=== PATIENT | female | born 1980 | race Caucasian/White ===

== ENCOUNTER 2016-12-02 14:12 | Emergency (ER) | payer OTHER ==
[2016-12-02] MEDS ORDERED: NS 0.9% 1000 ML* 1,000 ML IV ONE (16:53)
--- NOTE | 2016-12-02 17:02 | ED ---
Syncope/Near Syncope - HPI Summary HPI Summary: Pt here w/ episode of lightheadedness, flushing and near syncope while at work today. Was in A/C building and went outside for lunch - felt the heat outside bother her some. She then went to smoke in her friend's car - during smoking is when she experienced these sx. Her friend turned on the A/C which didn't really help - pt continued to finish her cigarette and felt poorly - not herself and nauseous. Went back into work and ate lunch, drank sparkling water (which she admits to drinking a lot of ). Didn't notice much difference but tried to continue to work and finally decided she needed to be checked out here. Since here, she's developed a ASH. Boyfriend reports she sounded slow w/ speech when he spoke w/ her earlier today. She denies dizziness, falling/syncope, URI sx, neck pain, chest pain, SOB, ab pain, change in BM's, urinary sx, flank pain, rash, swelling, focal numbness or weakness. She is sexually active w/ 1 male partner - no condoms as he has a vascectomy. She denies vaginal d/c, irritation, pain or abnormal vaginal bleeding/menstrual cycle. Admits BP is high today for her. Also admits to anxiety/depression - takes zoloft - no change in meds but drank last night - "2 tall cans" of ETOH, same as usual for her. Denies new stress or overexerting herself w/ daily routine. - History Of Current Complaint Chief Complaint: EDDizziness Time Seen by Provider: 12/02/16 14:51 Hx Obtained From: Patient, Family/Apartment Leasing Consultant - boyfriend - Allergies/Home Medications Allergies/Adverse Reactions: Allergies Allergy/AdvReac Type Severity Reaction Status Date / Time Penicillins Allergy Intermediate Hives Verified 06/25/14 11:19 PMH/Surg Hx/FS Hx/Imm Hx Previously Healthy: Yes Endocrine/Hematology History: Denies: Hx Anticoagulant Therapy, Hx Blood Disorders, Hx Diabetes, Hx Thyroid Disease, Hx Anemia Cardiovascular History: Denies: Hx Hypertension Respiratory History: Reports: Hx Asthma - uses albuterol < 1 x month Denies: Hx Chronic Obstructive Pulmonary Disease (COPD), Hx Pneumonia, Hx Pulmonary Embolism, Hx Seasonal Allergies, Hx Sleep Apnea GI History: Denies: Hx Gastroesophageal Reflux Disease, Hx Ulcer History: Denies: Hx Acute Renal Failure, Hx Chronic Renal Failure, Hx Kidney Infection , Hx Kidney Stones Neurological History: Reports: Hx Headaches - X 1 MONTH FOLLOWING FALL Denies: Hx CVA, Hx Migraine, Hx Transient Ischemic Attacks (TIA) Psychiatric History: Reports: Hx Anxiety, Hx Depression - takes zoloft - no changes in med dose - Surgical History Surgery Procedure, Year, and Place: Hernia repair age 4 yo Infectious Disease History: Yes Infectious Disease History: Denies: Hx Hepatitis, Hx Human Immunodeficiency Virus (HIV), Traveled Outside the [place] in Last 30 Days - Family History Known Family History: Positive: None - Social History Occupation: Employed Full-time - TECHNICAL SALES SUPPORT SPECIALIST @ [employer] Lives: With Family Alcohol Use: Daily Alcohol Amount: beer and wine Hx Substance Use: No Substance Use Type: Reports: None Hx Tobacco Use: Yes Smoking Status (MU): Current Every Day Smoker Review of Systems Constitutional: Negative Negative: Fever, Chills, Fatigue Eyes: Negative Negative: Photophobia, Blurred Vision, Diplopia ENT: Negative Negative: Dental Pain, Sore Throat, Ear Ache, Nasal Discharge Cardiovascular: Negative Negative: Palpitations, Chest Pain Respiratory: Negative Negative: Shortness Of Breath, Cough Gastrointestinal: Negative Negative: Abdominal Pain, Vomiting, Diarrhea, Nausea Genitourinary: Negative Musculoskeletal: Negative Skin: Negative Neurological: Other - see HPI Psychological: Normal All Other Systems Reviewed And Are Negative: Yes Physical Exam Triage Information Reviewed: Yes Vital Signs On Initial Exam: Initial Vitals Temp Pulse Resp BP Pulse Ox 99.2 F 73 17 174/111 99 12/02/16 14:13 12/02/16 14:13 12/02/16 14:13 12/02/16 14:13 12/02/16 14:13 Vital Signs Reviewed: Yes Appearance: Positive: No Pain Distress, Obese Skin: Positive: Warm, Dry Head/Face: Positive: Normal Head/Face Inspection - sinuses NTTP Eyes: Positive: Normal, EOMI, GEORGIE, Conjunctiva Clear. Negative: Conjunctiva Inflammed, Discharge ENT: Positive: Normal ENT inspection, Hearing grossly normal, Pharynx normal, TMs normal. Negative: Pharyngeal erythema, Nasal congestion, Nasal drainage, Tonsillar swelling, Tonsillar exudate, Trismus, Muffled/hoarse voice Dental: Negative: Gross Decay/Caries @, Dental Fracture @, Abscess @ Neck: Positive: Supple, Nontender, No Lymphadenopathy Respiratory/Lung Sounds: Positive: Clear to Auscultation, Breath Sounds Present. Negative: Rales, Rhonchi, Subcutaneous Emphysema, Stridor, Tracheal Deviation, Wheezes Cardiovascular: Positive: Normal, RRR, Pulses are Symmetrical in both Upper and Lower Extremities, S1, S2. Negative: Murmur, Rub, Leg Edema Left, Leg Edema Right Abdomen Description: Positive: Nontender, No Organomegaly, Soft. Negative: CVA Tenderness (R), CVA Tenderness (L) Bowel Sounds: Positive: Present Pelvic Exam: Positive: other - deferred Musculoskeletal: Positive: Normal, Strength/ROM Intact Neurological: Positive: Normal, Sensory/Motor Intact, Alert, Oriented to Person Place, Time, CN Intact II-III, Finger to Nose, Facial Symmetry, Speech Normal. Negative: Dysphagia, Pronator Drift Present Psychiatric: Positive: Normal - concerned but calm - Elmer Coma Scale Coma Scale Total: 15 Diagnostics - Vital Signs Vital Signs Temp Pulse Resp BP Pulse Ox 12/02/16 14:38 98.3 F 65 19 157/92 98 12/02/16 14:13 99.2 F 73 17 174/111 99 - Laboratory Result Diagrams: 12/02/16 17:04 12/02/16 17:04 Lab Statement: Any lab studies that have been ordered have been reviewed, and results considered in the medical decision making process. Re-Evaluation - Re-Evaluation First Eval Change: Improved - speech feels more clear Course/Dx Course Of Treatment: Pt presents w/ lightheadedness, slowed speech and near syncope earlier today - symptoms are not as severe now, but lingering. Clinical exam and tests are unremarkable for acute pathology. We did discuss however with elevated LFT's in the face of drinking ETOH last night, she may have residual effects of drinking ETOH today - rebound HTN, fatigue, dehydration and smoking on top of this exacerbating sx. Orthostatics are pending. Alternative is pt may be having 1st hypertensive episode - w/o 2nd recorded BP being elevated cannot diagnose this today however advise close f/u w/ PCP Monday for repeat BP and tx as needed. If she feels worse in the meantime, return to ED. Signed out to Ramila Vee PA-C @ 18:41. - Diagnoses Provider Diagnoses: Near syncope Discharge - Discharge Plan Condition: Stable Disposition: OTHER Discharge Disposition Comment: signed out to Ramila Vee PA-C Referrals: Rasta Darling MD [Primary Care Provider] -
[2016-12-02 17:16] LABS: Hematocrit 47 % (35-47); Hemoglobin 15.6 g/dl (12.0-16.0); Mean Corpuscular HGB Conc 34 g/dl (31-36); Mean Corpuscular Hemoglobin 31 pg (27-31); Mean Corpuscular Volume 91 fL (80-97); Mean Platelet Volume 9 um3 (7.4-10.4); Red Cell Distribution Width 13 % (10.5-15); White Blood Count 11.7 10^3/ul (3.5-10.8)
[2016-12-02 17:17] LABS: Urine Bilirubin Negative (Negative); Urine Glucose Negative (Negative); Urine Nitrite Negative (Negative)
[2016-12-02 17:30] LABS: ALT 69 U/L (7-52); AST 55 U/L (13-39); Albumin 3.5 g/dL (3.2-5.2); Alkaline Phosphatase 101 U/L (34-104); Anion Gap 6 mmol/L (2-11); BUN/Creatinine Ratio 20.3 (8-20); Blood Urea Nitrogen 12 mg/dL (6-24); C Reactive Protein 10.07 mg/L (< 5.00); CO2 Carbon Dioxide 26 mmol/L (22-32); Calcium 9.2 mg/dL (8.6-10.3); Chloride 103 mmol/L (101-111); EGFR African American 149.2 (>60); Globulin 3.1 g/dL (2-4); Glucose 85 mg/dL (70-100); Potassium 3.9 mmol/L (3.5-5.0); Sodium 135 mmol/L (133-145); Total Protein 6.6 g/dL (6.4-8.9)
--- NOTE | 2016-12-02 17:45 | RAD ---
INDICATION: Weakness COMPARISON: None TECHNIQUE: PA and lateral dual-energy views were obtained. FINDINGS: Bones/Soft Tissues: There are no acute bony findings. Cardiomediastinal: The cardiomediastinal silhouette is normal. Lungs: There are no infiltrates. Pleura: There are no pleural effusions. Other: None IMPRESSION: NEGATIVE EXAMINATION.
[2016-12-02 18:02] LABS: Alcohol < 10 mg/dL (<10)
[2016-12-02 18:12] LABS: TSH (Thyroid Stimulating Horm) 1.95 mcIU/mL (0.34-5.60)
[2016-12-02 19:03] VITALS: BP 156/96
== END 2016-12-02 19:31 | disposition home or self-care (01) ==
LOC: ED 14:12
DX: R55 Syncope and collapse (principal); F17.210 Nicotine dependence, cigarettes, uncomplicated
CPT/HCPCS: 36415; 71020; 80053; 80320; 81003; 83605; 83735; 84443; 84484; 85025; 85379; 85610; 85730; 86140; 93005; 96360; 99282; G0480

== ENCOUNTER 2017-03-26 16:49 | Emergency (ER) | payer OTHER ==
[2017-03-26 17:07] VITALS: BP 146/105
[2017-03-26] MEDS ORDERED: HYDROcodone/ACETAMIN 5-325 MG* 1 TAB PO ONE ×2 (17:21→18:19)
--- NOTE | 2017-03-26 18:04 | RAD ---
INDICATION: Right ankle injury. TECHNIQUE: 3 views of the right ankle were obtained. FINDINGS: There is lateral soft tissue swelling. The bones are normal alignment. No fracture is seen. IMPRESSION: SOFT TISSUE SWELLING, NO FRACTURE IS SEEN.
--- NOTE | 2017-03-26 18:05 | RAD ---
INDICATION: Right knee injury. TECHNIQUE: 4 views of the right knee were obtained. FINDINGS: The bones are in normal alignment. There is a moderate joint effusion present. No fracture is seen. Joint spaces appear maintained. IMPRESSION: JOINT EFFUSION, NO FRACTURE IS SEEN. IF THE PATIENT'S SYMPTOMS PERSIST, RECOMMEND FOLLOW-UP IMAGING.
--- NOTE | 2017-03-26 18:06 | RAD ---
INDICATION: Right lower leg injury. TECHNIQUE: 2 views of the right lower leg were obtained. FINDINGS: The bones are normal alignment. No fracture is seen. IMPRESSION: NO EVIDENCE OF FRACTURE.
--- NOTE | 2017-03-26 18:16 | UC ---
Knee Pain HPI - HPI Summary HPI Summary: Fell on stairs prior to arrival knee and ankle pain - History of Current Complaint Chief Complaint: UCLowerExtremity Stated Complaint: FALL/ R LEG PAIN Time Seen by Provider: 03/26/17 17:17 Hx Obtained From: Patient Hx Last Menstrual Period: 03/12/17 ?: No Onset/Duration: Sudden Onset, Lasting Hours, Still Present Severity Initially: Moderate Severity Currently: Moderate Location Of Injury: right knee and right ankle Character: Aching Aggravating Factor(s): Movement, Weight Bearing Alleviating Factor(s): Nothing Associated Signs And Symptoms: Positive: Swelling - right knee Able to Bear Weight: No - Allergies/Home Medications Allergies/Adverse Reactions: Allergies Allergy/AdvReac Type Severity Reaction Status Date / Time Penicillins Allergy Intermediate Hives Verified 03/26/17 17:07 PMH/Surg Hx/FS Hx/Imm Hx Psychological History: Anxiety Other History Of: Negative For: Anticoagulant Therapy - Surgical History Surgical History: Yes Surgery Procedure, Year, and Place: Hernia repair age 4 yo. ECTOPIC 2011 - Family History Known Family History: Positive: None - Social History Occupation: Employed Full-time Lives: With Family Alcohol Use: Daily Alcohol Amount: beer and wine Substance Use Type: None Smoking Status (MU): Current Every Day Smoker Household Exposure Type: Cigarettes Review of Systems Constitutional: Negative Skin: Negative Eyes: Negative ENT: Negative Respiratory: Negative Cardiovascular: Negative Gastrointestinal: Negative Genitourinary: Negative Motor: Negative Neurovascular: Negative Musculoskeletal: Arthralgia - right knee and ankle, Edema - right knee Neurological: Negative Psychological: Negative Is Patient Immunocompromised?: No All Other Systems Reviewed And Are Negative: Yes Physical Exam Triage Information Reviewed: Yes Appearance: Well-Appearing, Well-Nourished, Pain Distress Vital Signs: Initial Vital Signs Temp 98 F 03/26/17 17:04 Pulse 71 03/26/17 17:04 Resp 16 03/26/17 17:04 BP 146/105 03/26/17 17:04 Pulse Ox 100 03/26/17 17:04 Vital Signs Reviewed: Yes Eye Exam: Normal Eyes: Positive: Conjunctiva Clear ENT Exam: Normal ENT: Positive: Normal ENT inspection, Hearing grossly normal, Sinus tenderness. Negative: Nasal congestion, Nasal drainage, Tonsillar swelling, Tonsillar exudate, Trismus, Muffled voice, Hoarse voice Neck exam: Normal Neck: Positive: Supple, Nontender, No Lymphadenopathy Respiratory Exam: Normal Respiratory: Positive: No respiratory distress, No accessory muscle use Cardiovascular Exam: Normal Cardiovascular: Positive: RRR, Pulses Normal, Brisk Capillary Refill Musculoskeletal Exam: Other Musculoskeletal: Positive: Strength Limited @ - right knee and ankle, ROM Limited @ - right knee and ankle, Edema @ - rightknee Neurological Exam: Normal Neurological: Positive: Alert, Muscle Tone Normal Psychological Exam: Normal Psychological: Positive: Normal Response To Family Skin Exam: Normal Diagnostics - Radiology No standard instances Radiology Interpretation Completed By: ED Physician, Radiologist Knee Pain Course/Dx - Course Course Of Treatment: rice, non-weight bearing, immobilize, follow with ortho this week, pain manaagement - Differential Dx/Diagnosis Provider Diagnoses: right knee effusion, right ankle sprain Discharge - Discharge Plan Condition: Stable Disposition: HOME Prescriptions: Hydrocodone-Acetaminophen [Hydrocodone/Acetaminophen 5-325 mg] 1 - 2 tab PO Q6HR PRN #30 tab MDD 8 PRN Reason: Pain Naproxen Sodium [Naproxen Sodium 500 MG TAB] 500 mg PO Q12HR PRN #40 tab PRN Reason: Pain - Mild To Moderate Patient Education Materials: Ankle Sprain (ED), Crutch Instructions (ED), Ankle Stirrup Splint (ED), Swollen Knee Joint (ED), RICE Therapy (ED), Knee Immobilizer (ED), Hypertension (ED) Forms: *Work Release Referrals: Quinton Jenkins MD [Medical Doctor] - 2 Days Additional Instructions: Please remain non-weight bearing until further instructed by orthopedic MD
== END 2017-03-26 19:05 | disposition home or self-care (01) ==
LOC: UCEAST 16:49
DX: M25.461 Effusion, right knee (principal); S93.401A Sprain of unspecified ligament of right ankle, initial encounter; W10.9XXA Fall (on) (from) unspecified stairs and steps, initial encounter; Y93.01 Activity, walking, marching and hiking; Y92.9 Unspecified place or not applicable; Z72.0 Tobacco use
CPT/HCPCS: 99213; G0463

== ENCOUNTER 2018-12-21 09:23 | Day surgery (SDC) | payer BC ==
[~2018-12-21 09:23] MED LIST: Buffered Lidocaine 1% SYRIN* 1 ML/SYRINGE INTRADERM ONE; Dexamethasone IV* 4 MG/ML 1 ML (4 MG) IV SLOW PU ONE; Famotidine IV* 10 MG/ML 2 ML (20 mg) IV ONE; Lactated Ringers 1000 ML Bag* 1,000 ML IV SCH
[2018-12-21] MEDS ORDERED: Famotidine IV* 10 MG/ML 2 ML (20 mg) ONE (09:56)
[2018-12-21] MEDS ORDERED: Dexamethasone IV* 4 MG/ML 1 ML (4 MG) ONE (09:56)
[2018-12-21] MEDS ORDERED: Levalbuterol 0.63MG/3ML NEB* UNIT OF USE INH ONE ×2 (10:10→10:45)
[2018-12-21] MEDS ORDERED: Ondansetron INJ* 2 MG/ML VIAL ONE (10:47)
[2018-12-21] MEDS ORDERED: Propofol* 10 MG/ML 20 ML BTL ONE (10:47)
[2018-12-21] MEDS ORDERED: fentaNYL* 50 MCG/ML 2 ML VIAL (100 MCG VIAL) ONE ×3 (10:47→13:31)
[2018-12-21] MEDS ORDERED: Ketorolac INJ* 30 MG/ML 1 ML VIAL ONE (10:47)
[2018-12-21] MEDS ORDERED: Lidocaine 2% PF * 5 ML VIAL ONE (10:47)
[2018-12-21] MEDS ORDERED: Midazolam* 1 MG/ML 2 ML VIAL (2 MG) ONE (11:17)
[2018-12-21 11:18] LABS: ABS Basophils 0.1 10^3/ul (0-0.2); ABS Eosinophils 0.3 10^3/ul (0-0.6); ABS Lymphocytes 2.3 10^3/ul (1.0-4.8); ABS Monocytes 0.9 10^3/ul (0-0.8); ABS Neutrophils 8.8 10^3/ul (1.5-7.7); Eosinophil % 2.1 %; Hematocrit 42 % (35-47); Hemoglobin 14.6 g/dL (12.0-16.0); Lymphocyte % 18.8 %; Mean Corpuscular HGB Conc 35 g/dL (31-36); Mean Corpuscular Hemoglobin 31 pg (27-31); Mean Corpuscular Volume 90 fL (80-97); Mean Platelet Volume 8.8 fL (7.4-10.4); Nucleated Red Blood Cells % 0.1; Platelet Count 263 10^3/uL (150-450); Red Blood Count 4.67 10^6 /uL (3.70-4.87); Red Cell Distribution Width 13 % (10-15); White Blood Count 12.3 10^3/uL (3.5-10.8)
[2018-12-21] MEDS ORDERED: Silver Nitrate/Potassium Nitr* 1 EA STICK ONE (11:18)
[2018-12-21] MEDS ORDERED: Bupivacaine 0.5%* 50 ML MDV VIAL ONE (11:19)
[2018-12-21] MEDS ORDERED: Scopolamine 1.5 mg* PATCH ONE (11:26)
[2018-12-21] MEDS ORDERED: KETAMINE HCL* 50 MG/ML 10 ML VIAL ONE (11:29)
[2018-12-21] MEDS ORDERED: Rocuronium* 10 MG/ML VIAL ONE (11:33)
[2018-12-21] MEDS ORDERED: Glycopyrrolate IV* 0.2 MG/ML 1 ML VIAL ONE (11:38)
[2018-12-21] MEDS ORDERED: Neostigmine Methylsulfate* 3 MG/3 ML SYRINGE ONE (11:38)
[2018-12-21] MEDS ORDERED: Scopolamine 1.5 mg* PATCH TRANSDERM SCH (12:00)
[2018-12-21] MEDS ORDERED: Naloxone* 0.4 MG/ML 1 ML VIAL IV PRN (12:45)
[2018-12-21] MEDS ORDERED: DiMENhydriNATE IV* 50 MG/ML VIAL IV PUSH PRN (12:45)
[2018-12-21] MEDS: fentaNYL* 50 MCG/ML 2 ML VIAL (100 MCG VIAL) IV PRN ×2 (13:35→14:37)
[2018-12-21 14:37] VITALS: BP 157/97
[2018-12-21] MEDS ORDERED: oxyCODONE/Acetamin 5/325 MG* TAB ONE (14:49)
--- NOTE | 2018-12-23 22:58 | OP ---
DATE OF OPERATION: 12/21/18 [facility] DATE OF : 82 SURGEON: Dr. Maharaj. TELEMETRY NURSE: None. ANESTHESIA: General endotracheal. PRE-OP DIAGNOSES: Abnormal uterine bleeding, failed medical management, desires permanent sterilization. POST-OP DIAGNOSES: Abnormal uterine bleeding failed medical management, desires permanent sterilization. OPERATIVE PROCEDURE: NovaSure endometrial ablation, laparoscopic bilateral tubal ligation with fulguration. ESTIMATED BLOOD LOSS: Minimal. FLUIDS: Crystalloid. DRAINS: Mckeon catheter removed after the procedure. COMPLICATIONS: None. COUNTS: All correct. FINDINGS: Normal appearing endometrial cavity, fully charred after the ablation. Normal appearing uterus and ovaries. Right tube with evidence of partial salpingectomy due to ectopic . Normal appearing left tube. DESCRIPTION OF PROCEDURE: After informed consent was signed, the patient was taken to the operating room where she was given general anesthesia that was found to be adequate. She was prepped and draped in the dorsal lithotomy position in Blake stirrups. Two speculums were placed into the vagina to expose the cervix. The anterior lip of the cervix was grasped with a single- tooth tenaculum. The cervical length was measured and the total uterine length was measured giving a cavity length of 6.5. The NovaSure device was assembled and inserted with cavity width measuring at 5.2. The cavity assessment was done and passed. The device was then deployed. It was then removed and the endometrial cavity was inspected with a hysteroscope and appeared to be fully charred. The tenaculum was removed. Gloves were changed and attention was turned to the abdomen. The infraumbilical fold was grasped with an Allis clamp , tented up and an incision was made with a scalpel. Initial attempts were made to enter the abdominal cavity with 5-mm port but the trocar was not long enough. Therefore, the incision was extended to 10-mm incision. The Carla clamp was used to dissect down to the fascia, which was grasped and tented up and incised with the scalpel. This incision was then extended with Hale scissors. Stay sutures were placed on either side. Dissection was continued to the peritoneum, which was then entered. The trocar was inserted and entrance to the abdominal cavity was confirmed. The previously mentioned findings were noted. The [employer]IT Bioscience[employer]er device was put through the working port. The right tube was identified, which appeared to be fully interrupted due to the right ectopic . However, the remaining portion of tube was fulgurated. Then attention was turned to the left tube, which followed to its fimbriated end and a large portion of the mid portion of the tube was fulgurated. There was good hemostasis. The camera and port were then removed. The abdomen was desufflated. The fascia was closed with 0 Vicryl in a figure-of -eight suture. The skin was closed with 4-0 Vicryl in a running subcuticular fashion. Steri-Strips were then placed. The abdomen was cleaned. The patient was placed back into the supine position, awakened from anesthesia and moved to the recovery room in stable condition. [id number]/[facility] #: [id number] SHABNAM
== END 2018-12-21 15:33 | disposition home or self-care (01) ==
LOC: OR 09:23
PROVIDERS: ATTEND Obstetrics & Gynecology
DX: N92.0 Excessive and frequent menstruation with regular cycle (principal); Z30.2 Encounter for sterilization; Z72.0 Tobacco use; J45.909 Unspecified asthma, uncomplicated; F41.8 Other specified anxiety disorders
CPT/HCPCS: 36415; 81025; 85025; 86850; 86900; 86901; A9270-GY; J1100; J1885; J2250; J2405; J2704; J2710; J3010; J3490

== ENCOUNTER 2019-03-19 09:15 | Inpatient (IN) | payer BC ==
--- OUTSIDE RECORDS SUMMARY | 2019-03-19 09:21 | XMS REPORT | Continuity of Care Document ---
:1980 External Reference #:[id number] Author Name Parisa Maharaj MD Address [address] [place] [address] Problems Active Problems Provider Date Anxiety state Kaiden Garrett CNM Onset: 07/05/2011 Cervicovaginal cytology: Low grade squamous Jory Allison MD Onset: 07/04 intraepithelial lesion History of dysplasia of cervix Parisa Maharaj MD Onset: 01/09/2019 Social History Type Date Description Comments Sex Unknown Tobacco Use Start: Unknown Patient is a current smoker, smokes every day Smoking Status Reviewed: 03/15/19 Patient is a current smoker, smokes every day MATHIEU: 09/16/2011 Estimated Date of Delivery Based on LMP Allergies, Adverse Reactions, Alerts Description No Known Drug Allergies Medications Active Medications SIG Qnty Indications Ordering Date Provider Hydroxyzine HCL take 1 tab by 30tabs Parisa Maharaj, 03/15/2019 mouth as needed MD 25mg Tablets anxiety or sleep. Ondansetron HCL take 1 tab by 30tabs Parisa Maharaj, 03/15/2019 4mg mouth every 4 MD Tablets hours as needed nausea Disulfiram Take 1 tab po 30tabs Parisa Maharaj, 03/13/2019 250mg daily. MD Tablets Sertraline HCL Take 1 Tablet By 90Tablet Parisa Maharaj, 12/19/2018 Mouth Every Day MD 100mg Tablets Albuterol Sulfate take 2 puffs q2hrs 8.500gm Parisa Maharaj, 12/18/2018 HFA as needed 108(90Base) difficulty mcg/Act Aerosol breathing Xanax 1 tablet po every 20tabs Yvette Mullins CNM 04/28/2017 0.5mg Tablets 8 hrs prn anxiety History Medications Percocet take 1-2 tabs by 12tabs Parisa Maharaj MD 12/21/2018 - 5-325mg mouth q4hr as 12/18/2018 Tablets needed pain Zithromax Z-Shamar Take as directed 6tabs Parisa Maharaj MD 12/18/2018 - 250mg 12/18/2018 Tablets Sertraline HCL 1 po daily 60tabs Parisa Maharaj MD 11/14/2018 - 100mg 12/19/2018 Tablets Medications Administered in Office Medication SIG Qnty Indications Ordering Provider Date Depo Provera Alberto Lockhart M.D. 09/06/2012 Injection Injection Rho (D) Immune Yvette Mullins CNM 09/08/2006 Globulin, Human, One Dose Package Injection Immunizations Description No Information Available Vital Signs Date Vital Result Comment 01/01/2019 2:09pm BP Systolic 126 mmHg BP Diastolic 72 mmHg Height 62.5 inches 5'2.50" Weight 171.00 lb BMI (Body Mass Index) 30.8 kg/m2 7 Parity 4 11/29/2018 8:52am BP Systolic 124 mmHg BP Diastolic 74 mmHg Height 62.5 inches 5'2.50" Weight 176.00 lb BMI (Body Mass Index) 31.7 kg/m2 Last Menstrual Period [id number] 7 Parity 4 Results Test Acquired Date Facility Test Result H/L Range Note CBC Auto 12/21/2018 [facility] White Blood 12.3 10^3/uL High 3.5-10.8 [place] [address] Count [phone] Red Blood Count 4.67 10^6/uL Normal 3.70-4.87 Hemoglobin 14.6 g/dL Normal 12.0-16.0 Hematocrit 42 % Normal 35-47 Mean Corpuscular Volume 90 fL Normal 80-97 Mean Corpuscular Hemoglobin 31 pg Normal 27-31 Mean Corpuscular HGB Conc 35 g/dL Normal 31-36 Red Cell Distribution Width 13 % Normal 10-15 Platelet Count 263 10^3/uL Normal 150-450 Mean Platelet Volume 8.8 fL Normal 7.4-10.4 Abs Neutrophils 8.8 10^3/uL High 1.5-7.7 Abs Lymphocytes 2.3 10^3/uL Normal 1.0-4.8 Abs Monocytes 0.9 10^3/uL High 0-0.8 Abs Eosinophils 0.3 10^3/uL Normal 0-0.6 Abs Basophils 0.1 10^3/uL Normal 0-0.2 Abs Nucleated RBC 0.0 10^3/uL Granulocyte % 71.5 % Lymphocyte % 18.8 % Monocyte % 7.0 % Eosinophil % 2.1 % Basophil % 0.6 % Nucleated Red Blood Cells % 0.1 Type And Screen 12/21/2018 [facility] Patient [place] [address] [phone] Antibody Screen NEGATIVE Procedures Date Code Description Status 12/21/2018 49074 Endometrial Ablation,Hysteroscopy Completed 12/21/2018 05830 Laparoscopy, Fulguration Oviducts Completed Medical Devices Description No Information Available Encounters Type Date Location Provider Dx Diagnosis Office Visit 11/29/2018 [facility] Parisa Maharaj, N92.0 Excessive and frequent 8:30a MD menstruation with regular cycle Z30.2 Encounter for sterilization Z72.0 Tobacco use Assessments Date Code Description Provider 03/15/2019 F10.21 Alcohol dependence, in remission Parisa Maharaj MD 01/01/2019 N92.0 Excessive and frequent menstruation with Parisa Maharaj MD regular cycle 01/01/2019 Z09 Encounter for follow-up examination after Parisa Maharaj MD completed treatment for conditions other than malignant neoplasm 01/01/2019 Z30.2 Encounter for sterilization Parisa Maharaj MD 12/21/2018 N92.0 Excessive and frequent menstruation with Parisa Maharaj MD regular cycle 12/21/2018 Z30.2 Encounter for sterilization aPrisa Maharaj MD 11/29/2018 N92.0 Excessive and frequent menstruation with Parisa Maharaj MD regular cycle 11/29/2018 Z30.2 Encounter for sterilization Parisa Maharaj MD 11/29/2018 Z72.0 Tobacco use Parisa Maharaj MD Plan of Treatment 03/15/2019 - Parisa Maharaj MDF10.21 Alcohol dependence, in remissionComments: Plans smoking cessation evnetually after stablizing after alcohol cessation. Working on weight loss. Looking for gym to join. Functional Status Description No Information Available Mental Status Description No Information Available Referrals Description No Information Available
[2019-03-19 09:47] LABS: ABS Basophils 0.1 10^3/ul (0-0.2); ABS Eosinophils 0.2 10^3/ul (0-0.6); ABS Lymphocytes 2.2 10^3/ul (1.0-4.8); ABS Monocytes 0.6 10^3/ul (0-0.8); ABS Neutrophils 6.4 10^3/ul (1.5-7.7); ABS Nucleated RBC 0.1 10^3/ul; Eosinophil % 2.3 %; Hematocrit 46 % (35-47); Hemoglobin 15.7 g/dL (12.0-16.0); Lymphocyte % 23.6 %; Mean Corpuscular HGB Conc 34 g/dL (31-36); Mean Corpuscular Hemoglobin 31 pg (27-31); Mean Corpuscular Volume 90 fL (80-97); Mean Platelet Volume 8.3 fL (7.4-10.4); Nucleated Red Blood Cells % 0.6; Platelet Count 295 10^3/uL (150-450); Red Blood Count 5.07 10^6 /uL (3.70-4.87); Red Cell Distribution Width 13 % (10-15); White Blood Count 9.5 10^3/uL (3.5-10.8)
[2019-03-19 09:50] LABS: Urine Appearance Clear; Urine Bilirubin Negative (Negative); Urine Blood 1+ (Negative); Urine Color Yellow; Urine Glucose Negative (Negative); Urine Ketones Negative (Negative); Urine Nitrite Negative (Negative); Urine Protein Negative (Negative); Urine Specific Gravity 1.016 (1.010-1.030); Urine Urobilinogen Negative (Negative)
[2019-03-19 09:56] LABS: Urine Bacteria Absent (Absent); Urine Red Blood Cell Absent (Absent); Urine Squamous Epithelial Cell Present (Absent); Urine White Blood Cell Absent (Absent)
--- NOTE | 2019-03-19 09:56 | ED ---
Psychiatric Complaint - HPI Summary HPI Summary: This patient is a 39-year-old female with history of alcoholism presenting to the ED with suicidal ideation. Family is at bedside. Family states she recently went through a detox from alcohol which lasted as inpatient 7 days, she was then discharged and was able to stay sober for another 7 days and then relapsed last evening. She states she drank 4 large cans of beer. She is endorsing suicidal ideation without evidence of plan. She states she has felt this way in the past. She does have a history of depression. Patient currently taking Seroquel, Antabuse 250 mg, Atarax and Xanax. - History Of Current Complaint Chief Complaint: EDSuicidal Time Seen by Provider: 03/19/19 09:17 Hx Obtained From: Patient Hx Last Menstrual Period: unknown ?: No Onset/Duration: Sudden Onset Timing: Constant Severity Initially: Moderate Severity Currently: Moderate Aggravating Factor(s): Nothing Alleviating Factor(s): Nothing Associated Signs And Symptoms: Positive: Negative - Allergies/Home Medications Allergies/Adverse Reactions: Allergies Allergy/AdvReac Type Severity Reaction Status Date / Time Penicillins Allergy Intermediate Unknown Verified 03/19/19 09:21 Reaction Details Home Medications: Home Medications Disulfiram TAB* [Antabuse 250 MG TAB*] 250 mg PO DAILY 03/19/19 [History Confirmed 03/19/19] Sertraline* [Zoloft*] 100 mg PO DAILY 03/19/19 [History Confirmed 03/19/19] hydrOXYzine HCL TAB* [Atarax 25 MG TAB*] 25 mg PO DAILY PRN 03/19/19 [History Confirmed 03/19/19] PMH/Surg Hx/FS Hx/Imm Hx Previously Healthy: Yes Endocrine/Hematology History: Denies: Hx Anticoagulant Therapy, Hx Blood Disorders, Hx Diabetes, Hx Thyroid Disease, Hx Anemia Cardiovascular History: Denies: Hx Hypertension, Hx Pacemaker/ICD Respiratory History: Reports: Hx Asthma - uses albuterol < 1 x month Denies: Hx Chronic Obstructive Pulmonary Disease (COPD), Hx Pneumonia, Hx Pulmonary Embolism, Hx Seasonal Allergies, Hx Sleep Apnea GI History: Denies: Hx Gastroesophageal Reflux Disease, Hx Ulcer History: Denies: Hx Acute Renal Failure, Hx Chronic Renal Failure, Hx Kidney Infection , Hx Kidney Stones, Hx Renal Disease Sensory History: Reports: Hx Contacts or Glasses - DAY OF SURGERY WILL WEAR GLASSES Denies: Hx Hearing Aid Opthamlomology History: Reports: Hx Contacts or Glasses - DAY OF SURGERY WILL WEAR GLASSES Neurological History: Reports: Hx Headaches - X 1 MONTH FOLLOWING FALL IN PAST , NO CURRENT HEADACHES Denies: Hx CVA, Hx Migraine, Hx Transient Ischemic Attacks (TIA) Psychiatric History: Reports: Hx Anxiety, Hx Depression - takes zoloft -, Hx Panic Disorder - ANXIETY - Surgical History Surgery Procedure, Year, and Place: Hernia repair age 4 yo. 2012 [facility] Hx Anesthesia Reactions: No - Immunization History Hx Pertussis Vaccination: No Immunizations Up to Date: Yes Infectious Disease History: No Infectious Disease History: Denies: Hx Hepatitis, Hx Human Immunodeficiency Virus (HIV), History Other Infectious Disease, Traveled Outside the [place] in Last 30 Days - Family History Known Family History: Positive: None - Social History Occupation: Employed Full-time Lives: With Family Alcohol Use: Daily Alcohol Amount: beer and wine- went to detox but drank afterwards Hx Substance Use: No Substance Use Type: Reports: None Hx Tobacco Use: Yes Smoking Status (MU): Current Every Day Smoker Amount Used/How Often: 1/2 PPD Have You Smoked in the Last Year: Yes Review of Systems Negative: Fever, Chills, Fatigue, Skin Diaphoresis Negative: Palpitations, Chest Pain Negative: Shortness Of Breath, Cough Genitourinary: Negative Positive: no symptoms reported, see HPI Negative: Arthralgia, Myalgia Skin: Negative Neurological: Negative Positive: Anxious, Depressed All Other Systems Reviewed And Are Negative: Yes Physical Exam Triage Information Reviewed: Yes Vital Signs On Initial Exam: Initial Vitals Temp Pulse Resp BP Pulse Ox 98.1 F 81 16 191/110 98 03/19/19 09:17 03/19/19 09:17 03/19/19 09:17 03/19/19 09:17 03/19/19 09:17 Vital Signs Reviewed: Yes Appearance: Positive: Well-Appearing, Well-Nourished Skin: Positive: Warm, Skin Color Reflects Adequate Perfusion Head/Face: Positive: Normal Head/Face Inspection Eyes: Positive: EOMI, GEORGIE, Conjunctiva Clear Neck: Positive: Supple, No Lymphadenopathy Respiratory/Lung Sounds: Positive: Clear to Auscultation, Breath Sounds Present Cardiovascular: Positive: RRR, Pulses are Symmetrical in both Upper and Lower Extremities Musculoskeletal: Positive: Normal, Strength/ROM Intact Neurological: Positive: Facial Symmetry Psychiatric: Positive: Depressed AVPU Assessment: Alert Procedures - Sedation Patient Received Moderate/Deep Sedation with Procedure: No Diagnostics - Vital Signs Vital Signs Temp Pulse Resp BP Pulse Ox 03/19/19 09:17 98.1 F 81 16 191/110 98 - Laboratory Lab Results: Lab Results 03/19/19 03/19/19 Range/Units 09:32 09:35 WBC 9.5 (3.5-10.8) 10^3/uL RBC 5.07 H (3.70-4.87) 10^6 /uL Hgb 15.7 (12.0-16.0) g/dL Hct 46 (35-47) % MCV 90 (80-97) fL MCH 31 (27-31) pg MCHC 34 (31-36) g/dL RDW 13 (10-15) % Plt Count 295 (150-450) 10^3/uL MPV 8.3 (7.4-10.4) fL Neut % (Auto) 66.8 % Lymph % (Auto) 23.6 % [place] % (Auto) 6.1 % Eos % (Auto) 2.3 % Baso % (Auto) 1.2 % Absolute Neuts (auto) 6.4 (1.5-7.7) 10^3/ul Absolute Lymphs (auto) 2.2 (1.0-4.8) 10^3/ul Absolute Monos (auto) 0.6 (0-0.8) 10^3/ul Absolute Eos (auto) 0.2 (0-0.6) 10^3/ul Absolute Basos (auto) 0.1 (0-0.2) 10^3/ul Absolute Nucleated RBC 0.1 10^3/ul Nucleated RBC % 0.6 Urine Color Yellow Urine Appearance Clear Urine pH 5.0 (5-9) Ur Specific [place] 1.016 (1.010-1.030) Urine Protein Negative (Negative) Urine Ketones Negative (Negative) Urine Blood 1+ A (Negative) Urine Nitrate Negative (Negative) Urine Bilirubin Negative (Negative) Urine Urobilinogen Negative (Negative) Ur Leukocyte Esterase Negative (Negative) Urine Glucose Negative (Negative) Result Diagrams: 03/19/19 09:35 03/19/19 09:35 Lab Statement: Any lab studies that have been ordered have been reviewed, and results considered in the medical decision making process. Course/Dx - Course Course Of Treatment: Pt states she took antabuse 250mg 2 days ago, but not today. This does not appear consistent as she was able to drink 4 large cans of beer yesterday with no disulfiram side effects. She was discharged from detox 7 days ago and remained sober until last night. She comes with no complaints of pain, but endorses depression, stress, anxiety, alcohol abuse and SI. No plan. Pt was placed on constant observation and alcohol level was obtained along with other labs and urine. This is positive for benzos and cannabinoids. Alcohol level negative. Patient is cleared for mental health evaluation. She will come in voluntarily as alcohol-induced depressive episode. 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
[2019-03-19 10:04] LABS: ALT 14 U/L (7-52); AST 18 U/L (13-39); Albumin 3.6 g/dL (3.2-5.2); Albumin/Globulin Ratio 1.2 (1-3); Alkaline Phosphatase 89 U/L (34-104); Anion Gap 9 mmol/L (2-11); BUN/Creatinine Ratio 13.3 (8-20); Blood Urea Nitrogen 8 mg/dL (6-24); CO2 Carbon Dioxide 21 mmol/L (22-32); Calcium 8.7 mg/dL (8.6-10.3); Chloride 109 mmol/L (101-111); EGFR African American 135.4 (>60); EGFR Non-African American 111.9 (>60); Globulin 2.9 g/dL (2-4); Glucose 101 mg/dL (70-100); Potassium 3.9 mmol/L (3.5-5.0); Sodium 139 mmol/L (135-145); Total Protein 6.5 g/dL (6.4-8.9)
[2019-03-19 10:05] LABS: Urine Benzodiazepine Screen Presumptive Positive (None Detect); Urine Opiates Screen None Detected (None Detect)
[2019-03-19 10:10] LABS: HCG Pregnancy < 0.60 mIU/mL
[2019-03-19 10:28] LABS: Acetaminophen < 15 mcg/mL; Alcohol < 10 mg/dL (<10); Salicylate < 2.50 mg/dL (<30)
[2019-03-19 10:41] LABS: TSH (Thyroid Stimulating Horm) 1.95 mcIU/mL (0.34-5.60)
[2019-03-19] MEDS ORDERED: Al Hydrox/Mg Hydrox/Simet LIQ* 30 ML UDC PO PRN (12:46)
[2019-03-19] MEDS: hydrOXYzine HCL TAB* 50 MG PO PRN (18:48)
[2019-03-19] MEDS: Acetaminophen TAB* 325 MG PO PRN (20:56)
[2019-03-20 08:08] LABS: HDL Cholesterol 66.6 mg/dL
[2019-03-20] MEDS: Disulfiram TAB* 250 MG PO SCH (08:46)
[2019-03-20] MEDS: hydrOXYzine HCL TAB* 50 MG PO PRN ×3 (08:47→21:25)
[2019-03-20] MEDS ORDERED: Sertraline* 100 MG TAB PO SCH (09:00)
[2019-03-20] MEDS: Acetaminophen TAB* 325 MG PO PRN (15:26)
--- NOTE | 2019-03-20 18:04 | HP ---
HISTORY AND PHYSICAL: DATE OF ADMISSION: 03/19/19 IDENTIFYING DATA: Parisa is a 39-year-old, never , mother of 4 children, employed female with extensive history of alcohol use disorder, who was brought to the emergency department by her mother in context of worsening depressive symptoms and suicidal ideation with plans. CHIEF COMPLAINT: "I thought about ending my life by going to a remote place, take all my meds and slash my wrist and so that nobody can help me." HISTORY OF PRESENT ILLNESS: This 39-year-old female with no prior psychiatric hospitalization history or treatment by a psychiatrist reported to one of her cousins that she was seriously thinking about ending her life in the context of severe depression as well as everything in her life falling apart. Parisa is a mother of 3 boys and a girl from 2 different fathers, who has an extensive history of drinking alcohol. She also reports that ever since she was a child she was never a happy kid; however, because of the family environment which was very supportive, loving, and caring, she overcame her hurdles with depression up until recently when she cannot take it anymore. Although she did not maintain much sobriety except for her pregnancies that she maintained sobriety and for the last 2 weeks since she came out of a detox in [place], she then relapsed on alcohol again and her depression also got worse and she was seriously thinking about committing suicide. Parisa reports that even when she is sober she is always sad and feels depressed. Her self-esteem and motivation are really low. There are times that she becomes helpless, hopeless, worthless , and her suicidal thoughts become intensified. She also suffers from terrible guilt feeling when she cannot care for self or her kids and she sees her life in shambles. She denies any hypomanic or manic symptoms. Also denies any psychotic symptoms. She has many stressors including family, financial, job related, and mostly relationship related. She is in a long-term relationship with an individual who is father of her 3 children. They have been for a while now and she does not get much of financial or other support from anyone else. PAST PSYCHIATRIC HISTORY: She was never treated by a psychiatrist. Her antidepressants are prescribed by her primary care physician or her OB-DATABASE ANALYST doctor. PAST MEDICAL HISTORY: Unremarkable. She denies any chronic or acute physical health conditions for which she needs any treatment. ALLERGIES: PENICILLIN, reaction rash. FAMILY PSYCHIATRIC HISTORY: Parisa reports that everybody in her family including her mother has depression. She has only 1 sister, who is also depressed. At least a couple of her children have mental health problems, one of them needed to be hospitalized on behavioral science unit in [place], [place]. However, no one ever attempted or committed suicide. PERSONAL AND SOCIAL HISTORY: Parisa has always been single; however, she has 4 children from 2 different relationships. 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 She has a supportive mother, who lives in the area. She does not have any legal problems. PHYSICAL EXAMINATION GENERAL: Parisa does not appear to be in any physical distress. She is an appropriately dressed, but poorly groomed white female of her stated age 39. VITAL SIGNS: Her vitals show a blood pressure of 191/110, pulse 81, respirations 16, pulse ox 98%, and temperature 98.1. HEENT: Head: Atraumatic, normocephalic. Eyes: EOMI x2. PERRLA. Clear conjunctivae. NECK: Supple with midline trachea. No lymphadenopathy or thyromegaly. LUNGS: Clear. Equal air entry bilaterally. No wheezing or crepitations. CARDIOVASCULAR: S1 and S2 only. No gallops or murmurs. BREASTS: No breast exam was performed. ABDOMEN: Flat, nontender. No evidence of organomegaly. Positive bowel sounds in all quadrants. GENITOURINARY: No genitourinary exam was performed. MUSCULOSKELETAL: Within normal limits. NEUROLOGICAL: Intact sensory nervous system. Cranial nerves II through XII grossly intact. MENTAL STATUS EXAMINATION: Parisa is an average height, slightly obese female with poor personal hygiene and grooming. She is appropriately dressed. She is alert and oriented to time, place, and person; makes fair eye contact. Speech is normal in all spheres. Describes her mood as sad. Observed affect appears to be restricted. Intelligence appeared to be average as evidenced by her vocabulary and fund of knowledge. Memory functions are intact all spheres. Insight and judgment appear to be fair to good. SUMMARY: This 39-year-old female with no prior history of hospitalizations or treatment for mental health issues and who has an extensive history of alcohol use disorder became seriously suicidal with a plan to execute, was brought into the emergency room by her mother after she disclosed that to one of her cousins. She relapsed on alcohol 2 weeks after attending a detox for 7 days. DIAGNOSTIC IMPRESSION: MENTAL HEALTH DIAGNOSES: 1. Unspecified mood disorder. 2. Alcohol use disorder. 3. Rule out major depressive disorder. 4. Rule out alcohol-induced depression. PHYSICAL HEALTH DIAGNOSIS: None. TREATMENT RECOMMENDATIONS: Parisa will benefit from an inpatient stay for few days for diagnostic clarification as well as initiation of appropriate treatments. Her code status will remain full. Supportive milieu, individual and group therapy will be initiated. I will continue her on her outpatient medication which is Zoloft and we will defer adjustment to doses to her assigned psychiatrist on the unit. In my opinion, Parisa needs more help with substance use disorder if she wants to succeed and recover from mental health problems. She is agreeable to any help offered by the treatment team. [id number]/CPS #: [id number] MTDD
[2019-03-20] MEDS: QUEtiapine TAB* 100 MG PO SCH (21:23)
[2019-03-21] MEDS: Disulfiram TAB* 250 MG PO SCH (09:16)
[2019-03-21] MEDS: Sertraline* 100 MG TAB PO SCH (09:17)
[2019-03-21] MEDS: hydrOXYzine HCL TAB* 50 MG PO PRN ×3 (09:17→21:43)
[2019-03-21] MEDS: HYDROcodone/ACETAMIN 5-325 MG* 1 TAB PO PRN ×2 (12:05→19:36)
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
[2019-03-21] MEDS: QUEtiapine TAB* 100 MG PO SCH (21:43)
[2019-03-22] MEDS: HYDROcodone/ACETAMIN 5-325 MG* 1 TAB PO PRN ×4 (08:58→22:21)
[2019-03-22] MEDS: Sertraline* 100 MG TAB PO SCH (08:59)
[2019-03-22] MEDS: hydrOXYzine HCL TAB* 50 MG PO PRN ×3 (08:59→19:17)
[2019-03-22] MEDS: Disulfiram TAB* 250 MG PO SCH (08:59)
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
[2019-03-22] MEDS: QUEtiapine TAB* 100 MG PO SCH (22:21)
[2019-03-23] MEDS: HYDROcodone/ACETAMIN 5-325 MG* 1 TAB PO PRN ×4 (08:20→22:25)
[2019-03-23] MEDS: Disulfiram TAB* 250 MG PO SCH (08:20)
[2019-03-23] MEDS: Sertraline* 100 MG TAB PO SCH (08:20)
[2019-03-23] MEDS: hydrOXYzine HCL TAB* 50 MG PO PRN ×4 (08:20→22:24)
--- NOTE | 2019-03-23 13:45 | PN ---
Subjective - Subjective Date of Service: 03/23/19 Service Type: 30537 Hosp care 15 min low complexity Subjective: Parisa is seen in weekend coverage for NPP, Carmen Lakhani. The patient reports feeling "so-so" and does not have any acute complaints other than back pain and mild anxiety. She denies SI and states that she's looking to get into the local community so that she can maintain her sobriety and develop more social support. Objective - General Observations Appearance: Well Groomed Appears Stated Age: Yes Stature: WNL Posture: WNL Eye Contact: Average Behavior/Activity: WNL - Interaction Observations Attitude Towards Examiner: Cooperative Stated Mood: Euthymic Affect: Full Speech Pattern/Tone: Clear Thought Process: Coherent Perception: WNL Thought Content: WNL Hallucination Type: None Delusion Type: None - Cognitive Function Orientation: A&O x 4 Level of Consciousness: Awake, Alert, Appropriate Estimated Intelligence: Normal Insight: WNL Judgment Within Normal Limits: Yes - Medication Compliance Cooperative with Inpatient Medication Regimen: Yes - Group Participation Participates in Group Activities: Yes Assessment - Assessment Merits Inpatient Hospitalization: Consolidate Improvements, Pending Safe DC Plan Inpatient DSM-V Dx: F33.2 Clinical Impression: Parisa is a 39-year-old white single mother of four children who is diagnosed with major depressive disorder, recurrent, without psychotic features who comes to the hospital after relapsing on alcohol and becoming suicidal. Plan - Plan Treatment Plan: Name: PARISA FREITAS Birthdate: 1980 [id number] 03/21/19 Continue increased Zoloft (from 100 to 200 mg). Start oxycodone for back pain, inpatient only. Advise regarding Vivitrol that she must be free from opioids for 7-10 days. 03/22/19 Increase frequency of Atarax from Q6 to Q4 due to active and frustrating milieu. Continued Medication Management: Different Medication Medications: Current Medications Acetaminophen (Tylenol Tab*) 650 mg PO Q4H PRN PRN Reason: for pain; or Temp >101 F Last Admin: 03/20/19 15:26 Dose: 650 mg Hydrocodone Bitart/Acetaminophen ([place] 5-325 Tab*) 1 tab PO Q4H PRN PRN Reason: .BACK PAIN Last Admin: 03/23/19 12:42 Dose: 1 tab Al Hydrox/Mg Hydrox/Simethicone (Maalox Plus*) 30 ml PO Q4H PRN PRN Reason: INDIGESTION Disulfiram (Antabuse Tab*) 250 mg PO DAILY [facility] Last Admin: 03/23/19 08:20 Dose: 250 mg Hydroxyzine HCl (Atarax Tab*) 50 mg PO Q4H PRN PRN Reason: anxiety Last Admin: 03/23/19 12:42 Dose: 50 mg Ibuprofen (Motrin Tab*) 800 mg PO Q8H PRN PRN Reason: PAIN - MODERATE Quetiapine Fumarate (Seroquel Tab*) 100 mg PO BEDTIME [facility] Last Admin: 03/22/19 22:21 Dose: 100 mg Sertraline HCl (Zoloft*) 200 mg PO DAILY [facility] Last Admin: 03/23/19 08:20 Dose: 200 mg - Discharge Plan Discharge Plan: Inpatient Hospitalization
[2019-03-23] MEDS: QUEtiapine TAB* 100 MG PO SCH (22:25)
[2019-03-24] MEDS: HYDROcodone/ACETAMIN 5-325 MG* 1 TAB PO PRN ×4 (08:00→20:30)
[2019-03-24] MEDS: hydrOXYzine HCL TAB* 50 MG PO PRN ×4 (08:00→20:30)
[2019-03-24] MEDS: Sertraline* 100 MG TAB PO SCH (08:00)
[2019-03-24] MEDS: Disulfiram TAB* 250 MG PO SCH (08:01)
[2019-03-24] MEDS: Ibuprofen TAB* 800 MG PO PRN (10:50)
[2019-03-24] MEDS: QUEtiapine TAB* 100 MG PO SCH (20:29)
[2019-03-25] MEDS: HYDROcodone/ACETAMIN 5-325 MG* 1 TAB PO PRN ×5 (00:09→20:47)
[2019-03-25] MEDS: hydrOXYzine HCL TAB* 50 MG PO PRN ×4 (00:10→20:09)
[2019-03-25] MEDS: Sertraline* 100 MG TAB PO SCH (08:03)
[2019-03-25] MEDS: Disulfiram TAB* 250 MG PO SCH (08:05)
--- NOTE | 2019-03-25 13:46 | PN ---
Subjective - Subjective Date of Service: 03/25/19 Service Type: 36073 Hosp care 25 min moderate complexity Subjective: Parisa is anxious about discharge. She would like to stay for the rest of the week. We discuss many possible interventions including making lists of things that will be helpful, doing art if she chooses about the options she has. We talked at length about her strengths and how she has used her anxiety to help her with her job. We also discussed excusing her from work for longer than her stay here at the hospital. We discussed her diagnoses (generalized anxiety disorder and major depressive disorder) and how to use them to her advantage as well as how to manage them. Objective - General Observations Appearance: Neat Appears Stated Age: Yes Stature: Overweight Posture: WNL Eye Contact: Average Behavior/Activity: WNL - Interaction Observations Attitude Towards Examiner: Cooperative, Anxious Stated Mood: Dysphoric, Anxious Affect: Blunted Speech Pattern/Tone: Clear, Appropriate, Normal Volume Thought Process: Coherent, Goal Directed, Circumstantial Perception: WNL Thought Content: Preoccupation/Ruminations, Self-Deprecatory Hallucination Type: None Delusion Type: None - Cognitive Function Orientation: A&O x 4 Level of Consciousness: Awake, Alert, Appropriate Cognition: WNL Estimated Intelligence: Normal Insight: WNL Judgment Within Normal Limits: No Ability to Make Reasonable Decisions: Mildly Impaired - Medication Compliance Cooperative with Inpatient Medication Regimen: Yes - Group Participation Participates in Group Activities: Partial Assessment - Assessment Merits Inpatient Hospitalization: For Immediate Safety Inpatient DSM-V Dx: F33.2 Clinical Impression: Parisa is a 39-year-old white single mother of four children who is diagnosed with major depressive disorder, recurrent, without psychotic features who comes to the hospital after relapsing on alcohol and becoming suicidal. BSU: Problem List - Patient Problems (1) Major depressive disorder, recurrent episode, severe Current Visit: Yes Status: Acute Code(s): F33.2 - MAJOR DEPRESSV DISORDER, RECURRENT SEVERE W/O PSYCH FEATURES SNOMED Code(s): 150320327601 Plan - Plan Treatment Plan: Name: PARISA FREITAS Birthdate: 1980 [id number] 03/21/19 Continue increased Zoloft (from 100 to 200 mg). Start oxycodone for back pain, inpatient only. Advise regarding Vivitrol that she must be free from opioids for 7-10 days. 03/22/19 Increase frequency of Atarax from Q6 to Q4 due to active and frustrating milieu. 03/25/19 Prepare for discharge this week. Assign homework to work on outside groups. Medications: Current Medications Acetaminophen (Tylenol Tab*) 650 mg PO Q4H PRN PRN Reason: for pain; or Temp >101 F Last Admin: 03/20/19 15:26 Dose: 650 mg Hydrocodone Bitart/Acetaminophen ([place] 5-325 Tab*) 1 tab PO Q4H PRN PRN Reason: .BACK PAIN Last Admin: 03/25/19 12:15 Dose: 1 tab Al Hydrox/Mg Hydrox/Simethicone (Maalox Plus*) 30 ml PO Q4H PRN PRN Reason: INDIGESTION Disulfiram (Antabuse Tab*) 250 mg PO DAILY [facility] Last Admin: 03/25/19 08:05 Dose: 250 mg Hydroxyzine HCl (Atarax Tab*) 50 mg PO Q4H PRN PRN Reason: anxiety Last Admin: 03/25/19 08:04 Dose: 50 mg Ibuprofen (Motrin Tab*) 800 mg PO Q8H PRN PRN Reason: PAIN - MODERATE Last Admin: 03/24/19 10:50 Dose: 800 mg Quetiapine Fumarate (Seroquel Tab*) 100 mg PO BEDTIME [facility] Last Admin: 03/24/19 20:29 Dose: 100 mg Sertraline HCl (Zoloft*) 200 mg PO DAILY [facility] Last Admin: 03/25/19 08:03 Dose: 200 mg - Discharge Plan Discharge Plan: Outpatient Follow Up Outpatient Program: [facility]
[2019-03-25] MEDS: QUEtiapine TAB* 100 MG PO SCH (20:09)
[2019-03-25] MEDS: Ibuprofen TAB* 800 MG PO PRN (20:09)
[2019-03-26] MEDS: hydrOXYzine HCL TAB* 50 MG PO PRN ×6 (00:27→22:35)
[2019-03-26] MEDS: HYDROcodone/ACETAMIN 5-325 MG* 1 TAB PO PRN ×6 (00:27→23:31)
[2019-03-26] MEDS: Disulfiram TAB* 250 MG PO SCH (09:24)
[2019-03-26] MEDS: Sertraline* 100 MG TAB PO SCH (09:24)
[2019-03-26] MEDS: Ibuprofen TAB* 800 MG PO PRN ×2 (13:01→22:12)
[2019-03-26] MEDS: QUEtiapine TAB* 100 MG PO SCH (22:10)
[2019-03-27] MEDS: HYDROcodone/ACETAMIN 5-325 MG* 1 TAB PO PRN ×4 (05:03→17:58)
[2019-03-27] MEDS: hydrOXYzine HCL TAB* 50 MG PO PRN ×4 (05:03→17:59)
[2019-03-27] MEDS: Disulfiram TAB* 250 MG PO SCH (08:07)
[2019-03-27] MEDS: Sertraline* 100 MG TAB PO SCH (08:07)
[2019-03-27 10:00] VITALS: BP 116/81
--- NOTE | 2019-03-27 12:02 | PN ---
BSU: Group Therapy Note - Service Type Service Type: [id number] Group Psychotherapy - Cognitive Behavioral Group Therapy ( CBT):Patient was attentive and participatory in CBT programming this morning, and remained in good behavioral control. Patient expressed positive insights regarding relevant treatment interventions and goals.
== END 2019-03-27 19:55 | disposition home or self-care (01) | DRG 751 ==
LOC: ED 09:15 → BSU 12:46
PROVIDERS: ADMIT Psychiatry & Neurology Psychiatry; ATTEND Psychiatry & Neurology Psychiatry
DX: F33.2 Major depressive disorder, recurrent severe without psychotic features (principal); R45.851 Suicidal ideations; F41.9 Anxiety disorder, unspecified; E66.9 Obesity, unspecified; Z81.8 Family history of other mental and behavioral disorders; Z68.33 Body mass index [BMI] 33.0-33.9, adult; Z72.89 Other problems related to lifestyle
CPT/HCPCS: 36415; 80053; 80061; 80307; 80320; 80329; 81003; 81015; 83036; 84443; 84702; 85025; 90853; 99222; 99231; 99232; 99233; 99238; 99284; A9270-GY; G0480

== ENCOUNTER 2019-05-31 22:31 | Inpatient (IN) | payer BC ==
--- OUTSIDE RECORDS SUMMARY | 2019-05-31 22:44 | XMS REPORT ---
:1980 Author Organization [facility] Team Providers Name Role Phone JoseCoco so Primary Care Physician Unavailable Allergies, Adverse Reactions, Alerts Allergy Code CodeSystem Reaction Severity Criticality Status Start Substance Date Moderate Medications Medication Medication Medication Start Stop Route Dose Status Fill Code CodeSystem Date Date Instructions RxNorm Relevant diagnostic tests/laboratory data Narrative No Information Procedures Procedure Code CodeSystem Target Date of Status Service Device Device Device Name Site Procedure Delivery Code Name UID Location SNOMED-CT () 2019-03-12 [facility] [address], [place], [id number] Encounters/Encounter Diagnoses Encounter Encounter Diagnosis Diagnosis Diagnosis Date of Service Name Code Code Name CodeSystem Diagnosis Delivery Location Non-Billable 43371 SNOMED-CT 2019-03-21 [facility] , , , Vital Signs No Information Social History Element Description Description Start End Code CodeSystem AdditionalInfo Date Date SexAssignedAtBirth Female 1979-03 F AdministrativeGender 03-24 Hospital Discharge Instructions Reason For Referral Medical Equipment FDA Assessments
[2019-06-01 00:10] LABS: ABS Basophils 0.1 10^3/ul (0-0.2); ABS Eosinophils 0.2 10^3/ul (0-0.6); ABS Lymphocytes 2.8 10^3/ul (1.0-4.8); ABS Monocytes 0.7 10^3/ul (0-0.8); ABS Neutrophils 5.6 10^3/ul (1.5-7.7); Eosinophil % 1.7 %; Hematocrit 44 % (35-47); Hemoglobin 15.5 g/dL (12.0-16.0); Mean Corpuscular HGB Conc 35 g/dL (31-36); Mean Corpuscular Hemoglobin 31 pg (27-31); Mean Corpuscular Volume 89 fL (80-97); Mean Platelet Volume 8.3 fL (7.4-10.4); Nucleated Red Blood Cells % 0.1; Platelet Count 260 10^3/uL (150-450); Red Blood Count 5.01 10^6 /uL (3.70-4.87); Red Cell Distribution Width 13 % (10-15); White Blood Count 9.2 10^3/uL (3.5-10.8)
[2019-06-01 00:29] LABS: ALT 14 U/L (7-52); AST 13 U/L (13-39); Albumin 3.5 g/dL (3.2-5.2); Albumin/Globulin Ratio 1.3 (1-3); Alkaline Phosphatase 90 U/L (34-104); Anion Gap 11 mmol/L (2-11); BUN/Creatinine Ratio 11.5 (8-20); Blood Urea Nitrogen 6 mg/dL (6-24); CO2 Carbon Dioxide 22 mmol/L (22-32); Calcium 8.3 mg/dL (8.6-10.3); Chloride 108 mmol/L (101-111); EGFR African American 159.7 (>60); Globulin 2.7 g/dL (2-4); Glucose 107 mg/dL (70-100); Potassium 3.7 mmol/L (3.5-5.0); Sodium 141 mmol/L (135-145); Total Protein 6.2 g/dL (6.4-8.9)
--- NOTE | 2019-06-01 00:32 | ED ---
Psychiatric Complaint - HPI Summary HPI Summary: 39 year old female presents with depressed thoughts for the past couple days. She states that she has been sober for 2 months but today she has had some alcohol. States she's been feeling guilt as she wants to drink but wants to stay sober for family. Today she just started drinking. She states she had 3 L of alcohol. She states she is suppose to be taking Antabuse but has not been taking it. She states was suppose to see therapist but has not been. She has been going to AA meetings. She has been having thoughts of cutting herself. Does have a history of cutting herself. - History Of Current Complaint Chief Complaint: EDMentalHealth Time Seen by Provider: 05/31/19 23:10 Hx Last Menstrual Period: unknown - Allergies/Home Medications Allergies/Adverse Reactions: Allergies Allergy/AdvReac Type Severity Reaction Status Date / Time Penicillins Allergy Intermediate Unknown Verified 03/19/19 09:21 Reaction Details Home Medications: Home Medications Disulfiram TAB* [Antabuse 250 MG TAB*] 250 mg PO DAILY 03/19/19 [History Confirmed 03/19/19] QUEtiapine TAB* [Seroquel 100 MG *] 100 mg PO BEDTIME PRN #20 tab 03/27/19 [Rx] Sertraline* [Zoloft*] 200 mg PO DAILY #60 tab 03/27/19 [Rx] hydrOXYzine HCL TAB* [Atarax TAB 50 MG *] 50 mg PO Q4H PRN #90 tab 03/27/19 [Rx] PMH/Surg Hx/FS Hx/Imm Hx Endocrine/Hematology History: Denies: Hx Anticoagulant Therapy, Hx Blood Disorders, Hx Diabetes, Hx Thyroid Disease, Hx Anemia Cardiovascular History: Denies: Hx Hypertension, Hx Pacemaker/ICD Respiratory History: Reports: Hx Asthma - uses albuterol < 1 x month Denies: Hx Chronic Obstructive Pulmonary Disease (COPD), Hx Pneumonia, Hx Pulmonary Embolism, Hx Seasonal Allergies, Hx Sleep Apnea GI History: Denies: Hx Gastroesophageal Reflux Disease, Hx Ulcer History: Denies: Hx Acute Renal Failure, Hx Chronic Renal Failure, Hx Kidney Infection , Hx Kidney Stones, Hx Renal Disease Musculoskeletal History: Reports: Other Musculoskeletal History - spondylolisthesis Sensory History: Reports: Hx Contacts or Glasses - DAY OF SURGERY WILL WEAR GLASSES, currently wearing contacts Denies: Hx Hearing Aid Opthamlomology History: Reports: Hx Contacts or Glasses - DAY OF SURGERY WILL WEAR GLASSES, currently wearing contacts Neurological History: Reports: Hx Headaches - X 1 MONTH FOLLOWING FALL IN PAST , NO CURRENT HEADACHES Denies: Hx CVA, Hx Migraine, Hx Transient Ischemic Attacks (TIA) Psychiatric History: Reports: Hx Anxiety, Hx Eating Disorder - will go without eating when upset, Hx Depression - takes zoloft -, Hx Panic Disorder - ANXIETY, Hx Community Mental Health Tx, Hx Suicide Attempt - took double dose of Niquil as a teenager, Hx Substance Abuse - EtOH (beer) Denies: Hx Post Traumatic Stress Disorder, Hx Schizophrenia, Hx Bipolar Disorder - Surgical History Surgery Procedure, Year, and Place: Hernia repair age 4 yo. 2012 [facility]. 2019 Endometrial ablation Hx Anesthesia Reactions: No - Immunization History Date of Tetanus Vaccine: 2010 Immunizations Up to Date: Yes Infectious Disease History: No Infectious Disease History: Denies: Hx Hepatitis, Hx Human Immunodeficiency Virus (HIV), History Other Infectious Disease, Traveled Outside the [place] in Last 30 Days - Family History Known Family History: Positive: None - Social History Alcohol Use: Daily Alcohol Amount: beer and wine- went to detox but drank afterwards Hx Substance Use: No Substance Use Type: Reports: Marijuana Substance Use Comment - Amount & Last Used: Pt states she only smoked marijuana occasionally/rarely Hx Tobacco Use: Yes Smoking Status (MU): Current Every Day Smoker Amount Used/How Often: 1/2 PPD Have You Smoked in the Last Year: Yes Review of Systems Negative: Fever Negative: Chest Pain Negative: Shortness Of Breath Positive: Depressed All Other Systems Reviewed And Are Negative: Yes Physical Exam Triage Information Reviewed: Yes Vital Signs On Initial Exam: Initial Vitals Temp Pulse Resp BP Pulse Ox 99 F 98 20 147/102 97 05/31/19 22:33 05/31/19 22:33 05/31/19 22:33 05/31/19 22:33 05/31/19 22:33 Vital Signs Reviewed: Yes Appearance: Positive: Well-Appearing Skin: Positive: Warm, Dry Head/Face: Positive: Normal Head/Face Inspection Eyes: Positive: Normal, Conjunctiva Clear ENT: Positive: Pharynx normal Respiratory/Lung Sounds: Positive: Clear to Auscultation, Breath Sounds Present Cardiovascular: Positive: Normal, RRR Abdomen Description: Positive: Nontender, Soft Bowel Sounds: Positive: Present Musculoskeletal: Positive: Normal Neurological: Positive: Normal Psychiatric: Positive: Depressed Procedures - Sedation Patient Received Moderate/Deep Sedation with Procedure: No Diagnostics - Vital Signs Vital Signs Temp Pulse Resp BP Pulse Ox 05/31/19 22:33 99 F 98 20 147/102 97 - Laboratory Lab Results: Lab Results 06/01/19 06/01/19 Range/Units 00:05 00:05 WBC 9.2 (3.5-10.8) 10^3/uL RBC 5.01 H (3.70-4.87) 10^6 /uL Hgb 15.5 (12.0-16.0) g/dL Hct 44 (35-47) % MCV 89 (80-97) fL MCH 31 (27-31) pg MCHC 35 (31-36) g/dL RDW 13 (10-15) % Plt Count 260 (150-450) 10^3/uL MPV 8.3 (7.4-10.4) fL Neut % (Auto) 60.4 % Lymph % (Auto) 30.0 % [place] % (Auto) 7.2 % Eos % (Auto) 1.7 % Baso % (Auto) 0.7 % Absolute Neuts (auto) 5.6 (1.5-7.7) 10^3/ul Absolute Lymphs (auto) 2.8 (1.0-4.8) 10^3/ul Absolute Monos (auto) 0.7 (0-0.8) 10^3/ul Absolute Eos (auto) 0.2 (0-0.6) 10^3/ul Absolute Basos (auto) 0.1 (0-0.2) 10^3/ul Absolute Nucleated RBC 0.0 10^3/ul Nucleated RBC % 0.1 Sodium 141 (135-145) mmol/L Potassium 3.7 (3.5-5.0) mmol/L Chloride 108 (101-111) mmol/L Carbon Dioxide 22 (22-32) mmol/L Anion Gap 11 (2-11) mmol/L BUN 6 (6-24) mg/dL Creatinine 0.52 (0.51-0.95) mg/dL Est GFR ( Amer) 159.7 (>60) Est GFR (Non-Af Amer) 132.0 (>60) BUN/Creatinine Ratio 11.5 (8-20) Glucose 107 H (70-100) mg/dL Calcium 8.3 L (8.6-10.3) mg/dL Total Bilirubin 0.20 (0.2-1.0) mg/dL AST 13 (13-39) U/L ALT 14 (7-52) U/L Alkaline Phosphatase 90 (34-104) U/L Total Protein 6.2 L (6.4-8.9) g/dL Albumin 3.5 (3.2-5.2) g/dL Globulin 2.7 (2-4) g/dL Albumin/Globulin Ratio 1.3 (1-3) TSH Pending Salicylates Pending Acetaminophen Pending Serum Alcohol Pending Result Diagrams: 06/01/19 00:05 06/01/19 00:05 Lab Statement: Any lab studies that have been ordered have been reviewed, and results considered in the medical decision making process. Course/Dx - Course Course Of Treatment: 39 year old female presents with depressed thoughts for the past couple days. She states that she has been sober for 2 months but today she has had some alcohol. States she's been feeling guilt as she wants to drink but wants to stay sober for family. Today she just started drinking. She states she had 3 L of alcohol. She states she is suppose to be taking Antabuse but has not been taking it. She states was suppose to see therapist but has not been. She has been going to AA meetings. She has been having thoughts of cutting herself. Does have a history of cutting herself. On exam has a normal physical exam. Alcohol is clear at 4am. patient signed out to Dr. quiroz pending mental health evalaution. - Differential Dx/Clinical Impression Differential Diagnosis/HQI/PQRI: Positive: Alcohol Intoxication, Depression, Suicidal Ideation Provider Diagnosis: Alcohol intoxication, Depression Discharge ED - Sign-Out/Discharge Documenting (check all that apply): Sign-Out Patient Signing out patient TO: Dedra Quiroz - Discharge Plan Condition: Stable Referrals: No Primary Care Phys,NOPCP [Primary Care Provider] - - Billing Disposition and Condition Condition: STABLE
[2019-06-01 01:02] LABS: Acetaminophen < 15 mcg/mL; Alcohol 175 mg/dL (<10); Salicylate < 2.50 mg/dL (<30)
[2019-06-01 01:04] LABS: Urine Benzodiazepine Screen None Detected (None Detect); Urine Opiates Screen None Detected (None Detect)
[2019-06-01 01:16] LABS: TSH (Thyroid Stimulating Horm) 1.64 mcIU/mL (0.34-5.60)
[2019-06-01 01:19] LABS: Urine Appearance Clear; Urine Bilirubin Negative (Negative); Urine Blood Negative (Negative); Urine Color Straw; Urine Glucose Negative (Negative); Urine Ketones Negative (Negative); Urine Nitrite Negative (Negative); Urine Protein Negative (Negative); Urine Specific Gravity 1.003 (1.010-1.030); Urine Urobilinogen Negative (Negative)
--- NOTE | 2019-06-01 03:17 | ED ---
Progress - Progress Note Progress Note: The patient is a sign-out from ELIDA Quinones, to Dr. Dedra Quiroz MD, at change of shift at 0230 on 06/01/19, pending sobriety with medical clearance around 0400, psychiatric evaluation, and disposition. Patient is clinically sober and medically clear for MHE at 0400. Vinh Rodgers and Dr. Siddiqui from psychiatry have evaluated the patient and determined she warrants admission at this time. Re-Evaluation - Re-Evaluation First Eval Re-Evaluation Time: 04:00 Comment: Patient is clinically sober and medically clear for MHE. Course/Dx - Diagnoses Provider Diagnoses: Alcohol intoxication, Depression - Provider Notifications Discussed Care Of Patient With: Vinh Rodgers - mental health burring machine operator Time Discussed With Above Provider: 05:10 Instructed by Provider To: Other - Vinh and Dr. Siddiqui have evaluated the patient and decided she needs admission. Discharge ED - Sign-Out/Discharge Documenting (check all that apply): Patient Departure - Patient admitted [place] [facility] [place]. Siddiqui., Receiving Sign-Out Receiving patient FROM: Shadia Maria - Patient is a sign-out out from ELIDA Quinones, at change of shift at 0230 on 06/01/19, pending sobriety, MHE, and disposition. - Discharge Plan Condition: Stable Disposition: [facility]ATRIC [facility] [place] Billing Disposition and Condition Condition: STABLE Disposition: Psychiatric [place] [facility] - Attestation Statements Document Initiated by Scribe: Yes Documenting Scribe: Annie Dyer Provider For Whom Alondra is Documenting (Include Credential): Dedra Quiroz MD Scribcher Attestation: Annie Banks, scribed for Dedra Quiroz MD on 06/01/19 at 0606. Scribe Documentation Reviewed: Yes Provider Attestation: The documentation as recorded by the Annie perkins accurately reflects the service I personally performed and the decisions made by me, Dedra Quiroz MD Status of Scribe Document: Viewed Procedures - Sedation Patient Received Moderate/Deep Sedation with Procedure: No
[2019-06-01] MEDS ORDERED: Nicotine* 2MG (FRUIT FLAVOR) GUM PO PRN (05:37)
[2019-06-01] MEDS ORDERED: Al Hydrox/Mg Hydrox/Simet LIQ* 30 ML UDC PO PRN (05:37)
[2019-06-01] MEDS ORDERED: LORazepam TAB(*) 1 MG ONE (05:46)
[2019-06-01] MEDS: Thiamine IV* 100 MG IM X 1 ON ADMISSION IM ONE ×2 (06:00→10:41)
[2019-06-01] MEDS: Folic Acid TAB* 1 MG DAILY PO SCH (10:12)
[2019-06-01] MEDS: Vitamin THERAPEUTIC TAB PO SCH (10:12)
[2019-06-01] MEDS: LORazepam PO 0-6 for WAM protocol PO SCH ×2 (10:30→20:12)
--- NOTE | 2019-06-01 19:10 | HP ---
HISTORY AND PHYSICAL: DATE OF ADMISSION: IDENTIFYING DATA: Parisa is a 39-year-old, never , mother of 4 children, employed fem angi with extensive history of alcohol use disorder and 1 prior psychiatric hospitalization on this un it on 03/19/19 and discharged on 03/27/19, came back to the emergency department yesterday under jean st the similar circumstances of relapsing on alcohol and thinking about suicide. CHIEF COMPLAINT: "Once again I thought about ending my life by taking all my pills and slashing my w rist." HISTORY OF PRESENT ILLNESS: Parisa was discharged on 03/27/19 with a plan for her to go to [facility] for psychiatric treatment as well as go to a rehab. She went to rehab for about a week and then walked away and started drinking and never had followed up with [facility]. She kept drinking until yesterday when she thought about suicide with the [facility] e plan that she had in the past, but this time she did not want to go far away, wanted to do it in [facility] apartment where she lives with her 4 children. Last time, she was brought into the emergency room by her mother who was kind and supportive, but this time her mother and sister both were mad at her a nd she brought herself to the emergency room. Her mother even threatened her to report her to the [facility] and take her kids away. Parisa describes her mood as being depressed with poor energy, lack of motivation, helplessness, and worthlessness. She was not upfront and forthcoming wit h how much she drinks, but she says she drinks as much as she can and wants to end this by any means she can to prevent her mother from taking all her kids away and have a normal life. Today, during e evaluation, she continues to have suicidal thoughts, but no plan on the unit. PAST PSYCHIATRIC HISTORY: As mentioned earlier, this is her second lifetime hospitalization on the p sychiatric floor. She has not been taking her antidepressant and Seroquel as prescribed, but reports that she just started taking them recently. PAST MEDICAL HISTORY: Unremarkable because she denies any chronic or acute physical health condition s. ALLERGIES: She is allergic to PENICILLIN with rash. FAMILY PSYCHIATRIC HISTORY: According to Parisa, everyone in her family including her mother has depre ssion. She has only 1 sister, who also has depression. At least a couple of her biological children also have mental health problems, one of them needed to be hospitalized on behavioral science unit [facility] in the past. However, there is no family history of attempted or completed suicide. PERSONAL AND SOCIAL HISTORY: Parisa has always been single. She has 4 children from 2 different relat ionships. 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 She used to have supportive mother and her sister, but they are no more supportive because of her drinking. PHYSICAL EXAMINATION GENERAL: Parisa does not appear to be in any physical distress other than at the end of the interview she had some abdominal cramps and went to use the restroom. VITAL SIGNS: Unremarkable. During this stay, she scored 1 time on WAM and got some lorazepam. So f ar, she is doing okay. HEENT: Head: Atraumatic, normocephalic. Eyes: EOMI x2. PERRLA. Clear conjunctivae. NECK: Supple with midline trachea. No lymphadenopathy. No thyromegaly. LUNGS: Clear with equal air entry bilaterally. No wheezing or crepitations. CARDIOVASCULAR: Normal heart sounds with S1 and S2 only. No gallops, murmurs, or rubs. BREASTS: No breast exam performed. ABDOMEN: Flat, nontender without any organomegaly. Positive bowel sounds in all quadrants. GENITOURINARY: No genitourinary exam was performed. MUSCULOSKELETAL: Well developed. No abnormalities. Pulses positive in all extremities. NEUROLOGICAL: Intact sensory system. Cranial nerves II through XII are grossly intact. MENTAL STATUS EXAMINATION: Parisa is an average height, slightly obese female with fair per grabiel hygiene and grooming. She is appropriately dressed. Makes good eye contact. Speech is normal in all spheres. Describes her mood as depressed. Observed affect appears to be restricted and dysph oric. Intelligence appears to be average as evidenced by her vocabulary, fund of knowledge, and educ ational background. Denies any delusions or hallucinations at this time. Thought processes are logic al and goal directed. Memory functions are intact all spheres. Insight and judgment both impaired. SUMMARY: This 39-year-old female with 1 prior psychiatric hospitalization on this unit in February of last year, who was supposed to go see a psychiatrist at [facility] and also go for an outpatient rehab. She did not comply with either, rather went back to drinkin g and is back with severe depression and suicidal ideation with plans. DIAGNOSTIC IMPRESSION: MENTAL HEALTH DIAGNOSES: 1. Unspecified mood disorder. 2. Rule out alcohol-induced depression. 3. Alcohol use disorder. 4. Rule out major depressive disorder. PHYSICAL HEALTH DIAGNOSIS: None. TREATMENT PLAN: Parisa will remain hospitalized on behavioral science unit for her safety and stabiliz ation of depressive symptoms. She will also be placed on WAM to monitor for withdrawal. Her code st atus will remain full. Supportive milieu, individual and group therapy will be initiated. I will st art her back on her outpatient medications on a lower dose. Parisa at this time wants to pursue Vivitr ol; however, she never took naltrexone in the past, so I will give her a few doses of naltrexone to s ee how she tolerates it and we will defer naltrexone treatment to her assigned psychiatrist. In my o jose juan, Parisa needs an inpatient drug and alcohol rehab. Again, this is up to her treatment team here . [id number]/CPS #: [id number]
[2019-06-01] MEDS: Cefdinir cap* 300 MG CAP PO SCH (20:50)
[2019-06-01] MEDS: Naltrexone TAB* 50 MG TAB PO SCH (20:50)
[2019-06-01] MEDS: QUEtiapine TAB* 100 MG PO SCH (20:50)
[2019-06-01] MEDS: hydrOXYzine HCL TAB* 25 MG PO PRN (20:52)
[2019-06-02] MEDS: LORazepam PO 0-6 for WAM protocol PO SCH ×2 (05:30→22:29)
[2019-06-02] MEDS: Folic Acid TAB* 1 MG DAILY PO SCH (09:15)
[2019-06-02] MEDS: Sertraline* 100 MG TAB PO SCH (09:15)
[2019-06-02] MEDS: Thiamine TAB* 100 MG TAB DAILY (@ T+1) PO SCH (09:16)
[2019-06-02] MEDS: Cefdinir cap* 300 MG CAP PO SCH ×2 (09:16→20:26)
[2019-06-02] MEDS: Vitamin THERAPEUTIC TAB PO SCH (09:16)
[2019-06-02] MEDS: hydrOXYzine HCL TAB* 25 MG PO PRN ×3 (09:20→22:29)
[2019-06-02] MEDS: QUEtiapine TAB* 100 MG PO SCH (20:26)
[2019-06-02] MEDS: Naltrexone TAB* 50 MG TAB PO SCH (20:26)
[2019-06-03] MEDS: LORazepam PO 0-6 for WAM protocol PO SCH ×4 (00:30→19:32)
[2019-06-03 07:31] LABS: ALT 16 U/L (7-52); AST 13 U/L (13-39); Albumin 3.5 g/dL (3.2-5.2); Albumin/Globulin Ratio 1.3 (1-3); Alkaline Phosphatase 89 U/L (34-104); Amylase 29 U/L (29-103); Cholesterol 192 mg/dL; Globulin 2.8 g/dL (2-4); HDL Cholesterol 50.3 mg/dL; Indirect Bilirubin 0.3 mg/dL (0.3-1.0); LDL Cholesterol 114 mg/dL; Total Protein 6.3 g/dL (6.4-8.9); Triglycerides 137 mg/dL
[2019-06-03 07:49] LABS: Alcohol < 10 mg/dL (<10)
[2019-06-03] MEDS: Folic Acid TAB* 1 MG DAILY PO SCH (08:38)
[2019-06-03] MEDS: Vitamin THERAPEUTIC TAB PO SCH (08:38)
[2019-06-03] MEDS: Sertraline* 100 MG TAB PO SCH (08:38)
[2019-06-03] MEDS: Cefdinir cap* 300 MG CAP PO SCH ×2 (08:38→20:29)
[2019-06-03] MEDS: Thiamine TAB* 100 MG TAB DAILY (@ T+1) PO SCH (08:39)
[2019-06-03] MEDS ORDERED: Ondansetron ODT TAB* 4 MG SL PRN (11:32)
[2019-06-03] MEDS: hydrOXYzine HCL TAB* 25 MG PO PRN ×3 (11:45→22:38)
--- NOTE | 2019-06-03 14:41 | PN ---
Subjective - Subjective Date of Service: 06/03/19 Service Type: 98536 Hosp care 25 min moderate complexity Subjective: Parisa states she feels both mentally and physically "blah". She laments that she did not follow through with her outpatient recommendations. She states she's drinking hard seltzers and she's buying alcohol anywhere it's available. She remarks in a silly way that it isn't like she's performing sexual favors for a [employer]. We try to make it clear that she is on a slippery slope as she might consider taking a friend's alcohol, of they wouldn' t notice. She has many items on her "plate" including her children, her work, her Ex, alcoholism, and dogs needing to be out of the house by today. She had also been sick with strep throat for 3 days. She states no one communicates with her, not even her sister, although she isn' t convinced her sister has completely cut her off. Her mother, however, has communicated to her that she wants custody of her children. She insults Parisa for not keeping an adequate household and passively threatens that she will get CPS involved. Parisa suggests that she plays games with her drinking, suggesting that she teases herself in a way to drink only one and then maybe one more, etc. Further she notes that she lies when people try to call her out on drinking. She believes she needs to be accountable to someone else to keep her on the straight and narrow. When discussing that she must be accountable to herself, she says, "I wouldn't know how to do that." She suggested that maybe she could be accountable to mom, but says, "Mom's crazy but I wouldn't want to live with her." She says it's best to get better so no one can take her children. She mentions at the end of the interview, "I've asked to get help, but I've been denied half of the time." Objective - General Observations Appearance: Disheveled Appears Stated Age: Yes Stature: Overweight Posture: Slumped Eye Contact: Average Behavior/Activity: Agitated - Interaction Observations Attitude Towards Examiner: Cooperative Stated Mood: Dysphoric, Irritable, Anxious Affect: Full Speech Pattern/Tone: Clear, Appropriate, Normal Volume Thought Process: Coherent, Circumstantial Perception: WNL Thought Content: Preoccupation/Ruminations Hallucination Type: Auditory, Visual Delusion Type: None - Cognitive Function Orientation: A&O x 4 Level of Consciousness: Awake, Alert, Appropriate Cognition: Impaired Cognition, Impaired Attention/Concentration Estimated Intelligence: Normal Insight: Mostly Blames Others for Problems Judgment Within Normal Limits: No Ability to Make Reasonable Decisions: Moderately Impaired - Medication Compliance Cooperative with Inpatient Medication Regimen: Yes - Group Participation Participates in Group Activities: Partial Assessment - Assessment Merits Inpatient Hospitalization: For Immediate Safety Inpatient DSM-V Dx: F10.14 Clinical Impression: Parisa is a 39-year-old white woman who comes to the hospital after becoming intoxicated a number of times and eventually becoming suicidal in the context of inebriation and shame. Plan - Plan Treatment Plan: Name: PARISA FREITAS Birthdate: 1980 [id number] Started naltrexone. Increased hydroxyzine to 50 mg. Started Zofran 4 mg, increased to 8 mg, as it was not working well. Plan to give OMAR packet to Parisa and have her fill out referral forms for rehabs. Continue to advocate for inpatient rehab as she has not completely determined it is for her. Continued Medication Management: Different Medication Medications: Current Medications Acetaminophen (Tylenol Tab*) 650 mg PO Q4H PRN PRN Reason: PAIN or TEMP > 101 F Al Hydrox/Mg Hydrox/Simethicone (Maalox Plus*) 30 ml PO Q4H PRN PRN Reason: INDIGESTION Cefdinir (Cefdinir Cap*) 300 mg PO Q12H [facility] Stop: 06/11/19 09:01 Last Admin: 06/03/19 08:38 Dose: 300 mg Folic Acid (Folvite Tab*) 1 mg PO DAILY [facility] Last Admin: 06/03/19 08:38 Dose: 1 mg Hydroxyzine HCl (Atarax Tab*) 50 mg PO Q6H PRN PRN Reason: ANXIETY Lorazepam (Ativan Tab(*)) 0 - 6 mg PO .PER [place] PARAMETERS [facility]; Protocol Last Admin: 06/03/19 08:38 Dose: 2 mg Multivitamins (Theragran Tab*) 1 tab PO DAILY [facility] Last Admin: 06/03/19 08:38 Dose: 1 tab Naltrexone HCl (Naltrexone Tab*) 50 mg PO BEDTIME [facility] Last Admin: 06/02/19 20:26 Dose: 50 mg Nicotine Polacrilex (Nicotine Gum*) 2 mg PO Q2H PRN PRN Reason: CRAVING Ondansetron HCl (Zofran Odt Tab*) 8 mg SL Q6H PRN PRN Reason: NAUSEA/VOMITING Quetiapine Fumarate (Seroquel Tab*) 100 mg PO BEDTIME [facility] Last Admin: 06/02/19 20:26 Dose: 100 mg Sertraline HCl (Zoloft*) 200 mg PO DAILY [facility] Last Admin: 06/03/19 08:38 Dose: 200 mg Thiamine HCl (Vitamin B-1 Tab*) 100 mg PO DAILY [facility] Last Admin: 06/03/19 08:39 Dose: 100 mg - Discharge Plan Discharge Plan: Drug/Alcohol Rehab
[2019-06-03] MEDS: Ondansetron ODT TAB* 4 MG SL PRN (16:27)
[2019-06-03] MEDS: Naltrexone TAB* 50 MG TAB PO SCH (20:29)
[2019-06-03] MEDS: QUEtiapine TAB* 100 MG PO SCH (20:29)
[2019-06-04] MEDS: LORazepam PO 0-6 for WAM protocol PO SCH ×4 (01:27→20:43)
[2019-06-04] MEDS: Ondansetron ODT TAB* 4 MG SL PRN ×3 (05:20→18:28)
[2019-06-04] MEDS: hydrOXYzine HCL TAB* 25 MG PO PRN ×2 (05:21→12:00)
[2019-06-04] MEDS: Vitamin THERAPEUTIC TAB PO SCH (08:15)
[2019-06-04] MEDS: Cefdinir cap* 300 MG CAP PO SCH ×2 (08:15→20:27)
[2019-06-04] MEDS: Folic Acid TAB* 1 MG DAILY PO SCH (08:15)
[2019-06-04] MEDS: Thiamine TAB* 100 MG TAB DAILY (@ T+1) PO SCH (08:15)
[2019-06-04] MEDS: Sertraline* 100 MG TAB PO SCH (08:15)
--- NOTE | 2019-06-04 13:37 | PN ---
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 She states the father, Vito, does not have the same view of parenting that Parisa does. She says she tried to make the relationship work with Vito by being the perfect person he asked her to be, but she says "no woman could be good enough for that man." She discussed control in her relationships and her life. She acknowledges that she tries to maintain control but often needs a break or a pause. Using alcohol has become that pause for her. If she could make a choice in her life for change , she would ask for a slower pace. Objective - General Observations Appearance: Disheveled Appears Stated Age: Yes Stature: Overweight Posture: Slumped Eye Contact: Average Behavior/Activity: WNL - Interaction Observations Attitude Towards Examiner: Cooperative, Defensive Stated Mood: Dysphoric, Irritable Affect: Blunted Speech Pattern/Tone: Clear Thought Process: Coherent Perception: WNL Thought Content: Preoccupation/Ruminations, Depressive, Self-Deprecatory Thought Process: Lethality: Suicidal Planning Hallucination Type: Visual Delusion Type: None - Cognitive Function Orientation: A&O x 4 Level of Consciousness: Awake, Alert, Appropriate Cognition: Impaired Cognition, Impaired Attention/Concentration, Impaired Fund of Knowledge Estimated Intelligence: Normal Insight: Mostly Blames Others for Problems Judgment Within Normal Limits: No Ability to Make Reasonable Decisions: Moderately Impaired - Medication Compliance Cooperative with Inpatient Medication Regimen: Yes - Group Participation Participates in Group Activities: Partial Assessment - Assessment Merits Inpatient Hospitalization: For Immediate Safety Inpatient DSM-V Dx: F10.14 Clinical Impression: Parisa is a 39-year-old white woman who comes to the hospital after becoming intoxicated a number of times and eventually becoming suicidal in the context of inebriation and shame. She also has an underlying depressive and anxiety disorder. Plan - Plan Treatment Plan: Name: PARISA FREITAS Birthdate: 1980 [id number] Started naltrexone. Increased hydroxyzine to 50 mg. Started Zofran 4 mg, increased to 8 mg, as it was not working well. Plan to give OMAR packet to Parisa and have her fill out referral forms for rehabs. Continue to advocate for inpatient rehab as she has not completely determined it is for her. 06/04/2019 Increase Seroquel to 300 mg to address sleep and mood symptoms. Ask for nutrition consult to address old eating disorder patterns. Continue with completed OMAR packet and pursue inpatient rehab. Continued Medication Management: Different Medication Medications: Current Medications Acetaminophen (Tylenol Tab*) 650 mg PO Q4H PRN PRN Reason: PAIN or TEMP > 101 F Al Hydrox/Mg Hydrox/Simethicone (Maalox Plus*) 30 ml PO Q4H PRN PRN Reason: INDIGESTION Cefdinir (Cefdinir Cap*) 300 mg PO Q12H [facility] Stop: 06/11/19 09:01 Last Admin: 06/04/19 08:15 Dose: 300 mg Folic Acid (Folvite Tab*) 1 mg PO DAILY [facility] Last Admin: 06/04/19 08:15 Dose: 1 mg Hydroxyzine HCl (Atarax Tab*) 50 mg PO Q6H PRN PRN Reason: ANXIETY Last Admin: 06/04/19 12:00 Dose: 50 mg Lorazepam (Ativan Tab(*)) 0 - 6 mg PO .PER [place] PARAMETERS [facility]; Protocol Last Admin: 06/04/19 10:19 Dose: 2 mg Multivitamins (Theragran Tab*) 1 tab PO DAILY [facility] Last Admin: 06/04/19 08:15 Dose: 1 tab Naltrexone HCl (Naltrexone Tab*) 50 mg PO BEDTIME [facility] Last Admin: 06/03/19 20:29 Dose: 50 mg Nicotine Polacrilex (Nicotine Gum*) 2 mg PO Q2H PRN PRN Reason: CRAVING Ondansetron HCl (Zofran Odt Tab*) 8 mg SL Q6H PRN PRN Reason: NAUSEA/VOMITING Last Admin: 06/04/19 12:00 Dose: 8 mg Quetiapine Fumarate (Seroquel Tab*) 100 mg PO BEDTIME [facility] Last Admin: 06/03/19 20:29 Dose: 100 mg Sertraline HCl (Zoloft*) 200 mg PO DAILY [facility] Last Admin: 06/04/19 08:15 Dose: 200 mg Thiamine HCl (Vitamin B-1 Tab*) 100 mg PO DAILY [facility] Last Admin: 06/04/19 08:15 Dose: 100 mg - Discharge Plan Discharge Plan: Drug/Alcohol Rehab
[2019-06-04] MEDS: hydrOXYzine HCL TAB* 50 MG PO PRN ×2 (15:49→20:26)
[2019-06-04] MEDS: QUEtiapine TAB* 300 MG PO SCH (20:26)
[2019-06-04] MEDS: Naltrexone TAB* 50 MG TAB PO SCH (20:27)
[2019-06-05] MEDS: hydrOXYzine HCL TAB* 50 MG PO PRN ×5 (03:45→21:07)
[2019-06-05] MEDS: LORazepam PO 0-6 for WAM protocol PO SCH ×3 (03:57→20:09)
[2019-06-05] MEDS: Cefdinir cap* 300 MG CAP PO SCH ×2 (08:40→20:08)
[2019-06-05] MEDS: Thiamine TAB* 100 MG TAB DAILY (@ T+1) PO SCH (08:40)
[2019-06-05] MEDS: Folic Acid TAB* 1 MG DAILY PO SCH (08:40)
[2019-06-05] MEDS: Sertraline* 100 MG TAB PO SCH (08:40)
[2019-06-05] MEDS: Vitamin THERAPEUTIC TAB PO SCH (08:40)
[2019-06-05] MEDS: Ondansetron ODT TAB* 4 MG SL PRN ×2 (10:45→17:08)
--- NOTE | 2019-06-05 14:47 | PN ---
Subjective - Subjective Date of Service: 06/05/19 Service Type: 20459 Hosp care 25 min moderate complexity Subjective: Patient has been primarily seclusive to her room, reports needing to do so in order to complete MMPI. Patient reports body aches related to withdrawal. She states desire to use computer to order new eye glasses. She reports frustration d/t visitors not being allowed (per [facility] due to pandemic precautions) . She was hoping to meet with her spring coverer to do [id number] confession. She declines offer of personal coach consult. Patient reports poor sleep and asks for Ambien by name. [employer] As[employer]er advises against controlled substances. Patient agrees to trial low dose trazodone. She is strongly encouraged to attend programming and remain out of bed during the day. Objective - General Observations Appearance: Unkempt Stature: Overweight Posture: Slumped Eye Contact: Average Behavior/Activity: Slowed - Interaction Observations Attitude Towards Examiner: Cooperative Stated Mood: Dysphoric Affect: Flat Speech Pattern/Tone: Appropriate, Quiet Volume Thought Process: Circumstantial, Impoverished Perception: WNL Thought Content: Depressive Thought Process: Lethality: Passive Wish Hallucination Type: Visual Delusion Type: Denies - Cognitive Function Orientation: A&O x 4 Level of Consciousness: Alert Cognition: Impaired Attention/Concentration Estimated Intelligence: Normal Insight: Difficulty Acknowledging Presence of Psyciatric Problems Judgment Within Normal Limits: No Ability to Make Reasonable Decisions: Moderately Impaired - Medication Compliance Cooperative with Inpatient Medication Regimen: Yes - Group Participation Participates in Group Activities: Partial Assessment - Assessment Merits Inpatient Hospitalization: For Immediate Safety, For Stabilization, For Discharge Planning, Pending Safe DC Plan Inpatient DSM-V Dx: F10.14 Clinical Impression: Parisa is a 39-year-old white woman who comes to the hospital after becoming intoxicated a number of times and eventually becoming suicidal in the context of inebriation and shame. She also has an underlying depressive and anxiety disorder. Plan - Plan Treatment Plan: Name: PARISA FREITAS Birthdate: 1980 [id number] Started naltrexone. Increased hydroxyzine to 50 mg. Started Zofran 4 mg, increased to 8 mg, as it was not working well. Plan to give OMAR packet to Parisa and have her fill out referral forms for rehabs. Continue to advocate for inpatient rehab as she has not completely determined it is for her. 06/04/2019 Increase Seroquel to 300 mg to address sleep and mood symptoms. Ask for nutrition consult to address old eating disorder patterns. Continue with completed OMAR packet and pursue inpatient rehab. 06/05/19 decreased to q30min obs and added staff pass. may use computer x1. add trazodone for sleep. Encouraged more group participation and remaining out of bed during daytime. Patient is working on [employer]. Continued Medication Management: Start Medication Medications: Current Medications Acetaminophen (Tylenol Tab*) 650 mg PO Q4H PRN PRN Reason: PAIN or TEMP > 101 F Al Hydrox/Mg Hydrox/Simethicone (Maalox Plus*) 30 ml PO Q4H PRN PRN Reason: INDIGESTION Cefdinir (Cefdinir Cap*) 300 mg PO Q12H [facility] Stop: 06/11/19 09:01 Last Admin: 06/05/19 08:40 Dose: 300 mg Folic Acid (Folvite Tab*) 1 mg PO DAILY [facility] Last Admin: 06/05/19 08:40 Dose: 1 mg Hydroxyzine HCl (Atarax Tab*) 50 mg PO Q4H PRN PRN Reason: .ANXIETY Last Admin: 06/05/19 12:48 Dose: 50 mg Lorazepam (Ativan Tab(*)) 0 - 6 mg PO .PER [facility] PARAMETERS [facility]; Protocol Last Admin: 06/05/19 12:06 Dose: 2 mg Multivitamins (Theragran Tab*) 1 tab PO DAILY [facility] Last Admin: 06/05/19 08:40 Dose: 1 tab Naltrexone HCl (Naltrexone Tab*) 50 mg PO BEDTIME [facility] Last Admin: 06/04/19 20:27 Dose: 50 mg Nicotine Polacrilex (Nicotine Gum*) 2 mg PO Q2H PRN PRN Reason: CRAVING Ondansetron HCl (Zofran Odt Tab*) 8 mg SL Q6H PRN PRN Reason: NAUSEA/VOMITING Last Admin: 06/05/19 10:45 Dose: 8 mg Quetiapine Fumarate (Seroquel Tab*) 300 mg PO BEDTIME [facility] Last Admin: 06/04/19 20:26 Dose: 300 mg Sertraline HCl (Zoloft*) 200 mg PO DAILY [facility] Last Admin: 06/05/19 08:40 Dose: 200 mg Thiamine HCl (Vitamin B-1 Tab*) 100 mg PO DAILY [facility] Last Admin: 06/05/19 08:40 Dose: 100 mg Trazodone HCl (Desyrel Tab*) 50 mg PO BEDTIME PRN PRN Reason: INSOMNIA - Discharge Plan Discharge Plan: Drug/Alcohol Rehab
[2019-06-05] MEDS: QUEtiapine TAB* 300 MG PO SCH (20:08)
[2019-06-05] MEDS: Naltrexone TAB* 50 MG TAB PO SCH (20:08)
[2019-06-05] MEDS: traZODone TAB* 50 MG TAB PO PRN (20:12)
[2019-06-06] MEDS: LORazepam PO 0-6 for WAM protocol PO SCH ×2 (01:45→14:13)
[2019-06-06] MEDS: hydrOXYzine HCL TAB* 50 MG PO PRN ×5 (05:20→22:07)
[2019-06-06] MEDS: Folic Acid TAB* 1 MG DAILY PO SCH (08:15)
[2019-06-06] MEDS: Vitamin THERAPEUTIC TAB PO SCH (08:15)
[2019-06-06] MEDS: Sertraline* 100 MG TAB PO SCH (08:16)
[2019-06-06] MEDS: Cefdinir cap* 300 MG CAP PO SCH ×2 (08:16→20:40)
[2019-06-06] MEDS: Thiamine TAB* 100 MG TAB DAILY (@ T+1) PO SCH (08:16)
[2019-06-06 11:00] VITALS: BP 127/79
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
--- NOTE | 2019-06-06 15:08 | PN ---
Subjective - Subjective Date of Service: 06/06/19 Service Type: 47339 Hosp care 25 min moderate complexity Subjective: Parisa is found in her bed. She is tearful and is clutching her abdomen. She states that she is feeling poorly and that her stomach is hurting. She reports that she was "in front of the nurses' station for a long time and no one helped me". When she directly request a PRN medication for nausea, she was given mylanta. Unfortunately, it did not solve the problem and she vomited after rocking in her bed for some time. WAM was performed and she scored based, in part, on BP as well as agitation, nausea, and tremor. Encouragement and reassurance provided regarding her symptoms and the process of alcohol detox as well as the hard work that it involved in achieving and maintaining sobriety. Objective - General Observations Appearance: Disheveled Appears Stated Age: Yes Stature: Overweight Posture: Slumped Eye Contact: Avoidant Behavior/Activity: Agitated - Interaction Observations Attitude Towards Examiner: Anxious, Defensive, Manipulative Stated Mood: Anxious Affect: Labile Speech Pattern/Tone: Pressured Thought Process: Goal Directed Perception: WNL Thought Content: Preoccupation/Ruminations, Depressive Thought Process: Lethality: Passive Wish Hallucination Type: Auditory Delusion Type: None - Cognitive Function Orientation: A&O x 4 Level of Consciousness: Awake, Alert, Appropriate Cognition: Impaired Attention/Concentration, Impaired Fund of Knowledge Estimated Intelligence: Normal Insight: Mostly Blames Others for Problems Judgment Within Normal Limits: No Ability to Make Reasonable Decisions: Moderately Impaired - Medication Compliance Cooperative with Inpatient Medication Regimen: Yes - Group Participation Participates in Group Activities: Partial Assessment - Assessment Merits Inpatient Hospitalization: For Immediate Safety, For Discharge Planning Inpatient DSM-V Dx: F10.14 Clinical Impression: Parisa is a 39-year-old white woman who comes to the hospital after becoming intoxicated a number of times and eventually becoming suicidal in the context of inebriation and shame. She also has an underlying depressive and anxiety disorder. She is actively withdrawing from alcohol. Plan - Plan Treatment Plan: Name: PARISA FREITAS Birthdate: 1980 [id number] Started naltrexone. Increased hydroxyzine to 50 mg. Started Zofran 4 mg, increased to 8 mg, as it was not working well. Plan to give OMAR packet to Parisa and have her fill out referral forms for rehabs. Continue to advocate for inpatient rehab as she has not completely determined it is for her. 06/04/2019 Increase Seroquel to 300 mg to address sleep and mood symptoms. Ask for nutrition consult to address old eating disorder patterns. Continue with completed OMAR packet and pursue inpatient rehab. 06/05/19 decreased to q30min obs and added staff pass. may use computer x1. add trazodone for sleep. Encouraged more group participation and remaining out of bed during daytime. Patient is working on [employer]. 06/06/2019 Continue to use [facility] protocol. Monitor for emotional support needs and provide therapeutic communication/interventions as indicated. Medications: Current Medications Acetaminophen (Tylenol Tab*) 650 mg PO Q4H PRN PRN Reason: PAIN or TEMP > 101 F Al Hydrox/Mg Hydrox/Simethicone (Maalox Plus*) 30 ml PO Q4H PRN PRN Reason: INDIGESTION Last Admin: 06/06/19 13:47 Dose: 30 ml Cefdinir (Cefdinir Cap*) 300 mg PO Q12H [facility] Stop: 06/11/19 09:01 Last Admin: 06/06/19 08:16 Dose: 300 mg Folic Acid (Folvite Tab*) 1 mg PO DAILY [facility] Last Admin: 06/06/19 08:15 Dose: 1 mg Hydroxyzine HCl (Atarax Tab*) 50 mg PO Q4H PRN PRN Reason: .ANXIETY Last Admin: 06/06/19 13:11 Dose: 50 mg Lorazepam (Ativan Tab(*)) 0 - 6 mg PO .PER [facility] PARAMETERS [facility]; Protocol Last Admin: 06/06/19 14:13 Dose: 2 mg Multivitamins (Theragran Tab*) 1 tab PO DAILY [facility] Last Admin: 06/06/19 08:15 Dose: 1 tab Naltrexone HCl (Naltrexone Tab*) 50 mg PO BEDTIME [facility] Last Admin: 06/05/19 20:08 Dose: 50 mg Nicotine Polacrilex (Nicotine Gum*) 2 mg PO Q2H PRN PRN Reason: CRAVING Ondansetron HCl (Zofran Odt Tab*) 8 mg SL Q6H PRN PRN Reason: NAUSEA/VOMITING Last Admin: 06/05/19 17:08 Dose: 8 mg Quetiapine Fumarate (Seroquel Tab*) 300 mg PO BEDTIME [facility] Last Admin: 06/05/19 20:08 Dose: 300 mg Sertraline HCl (Zoloft*) 200 mg PO DAILY [facility] Last Admin: 06/06/19 08:16 Dose: 200 mg Thiamine HCl (Vitamin B-1 Tab*) 100 mg PO DAILY [facility] Last Admin: 06/06/19 08:16 Dose: 100 mg Trazodone HCl (Desyrel Tab*) 50 mg PO BEDTIME PRN PRN Reason: INSOMNIA Last Admin: 06/05/19 20:12 Dose: 50 mg - Discharge Plan Discharge Plan: Drug/Alcohol Rehab
[2019-06-06] MEDS: Ondansetron ODT TAB* 4 MG SL PRN (15:26)
[2019-06-06] MEDS: Acetaminophen TAB* 325 MG PO PRN ×2 (15:26→20:38)
[2019-06-06] MEDS: Naltrexone TAB* 50 MG TAB PO SCH (20:39)
[2019-06-06] MEDS: QUEtiapine TAB* 300 MG PO SCH (20:39)
[2019-06-06] MEDS: traZODone TAB* 50 MG TAB PO PRN (20:40)
[2019-06-07] MEDS: Vitamin THERAPEUTIC TAB PO SCH (08:24)
[2019-06-07] MEDS: Sertraline* 100 MG TAB PO SCH (08:24)
[2019-06-07] MEDS: Folic Acid TAB* 1 MG DAILY PO SCH (08:24)
[2019-06-07] MEDS: Cefdinir cap* 300 MG CAP PO SCH (08:24)
[2019-06-07] MEDS: Thiamine TAB* 100 MG TAB DAILY (@ T+1) PO SCH (08:24)
[2019-06-07] MEDS: hydrOXYzine HCL TAB* 50 MG PO PRN (08:25)
--- NOTE | 2019-06-07 17:16 | DS ---
DISCHARGE SUMMARY: DATE OF ADMISSION: 06/01/19 DATE OF DISCHARGE: 06/07/19 PROVIDER: Carmen Lakhani NP, in Psychiatry. SUPERVISING PHYSICIAN: Dr. Po Ayala.* (DICTATED BY CARMEN LAKHANI NP) DIAGNOSES: 1. Alcohol abuse with alcohol-induced mood disorder. 2. Major depressive disorder. 3. Generalized anxiety disorder. CONDITION AT THE TIME OF DISCHARGE: Improved, psychiatrically cleared, stable. Participated in some groups, was selectively social with peers. Family is agreeable to her discharge as is Parisa. She has done well here psychiatrically. She tolerated the addition of naltrexone well. She will be attending [facility] in [place], [place]. MENTAL STATUS EXAM: At the time of discharge, Parisa is calm, cooperative, and makes good eye contact. She is alert and oriented x4. Her grooming is adequate. Her speech pace is normal. Thought processes are logical. She is not psychotic or delusional. She denies AH, VH, SI, and HI. Insight and judgment are fair. She is willing to follow up and she is urged to see a therapist. DISCHARGE INSTRUCTIONS TO THE PATIENT: A. Medications: 1. Cefdinir 300 mg capsules q.12 hours, dispensed 10. 2. Hydroxyzine 50 mg tablets q.4 hours p.r.n. anxiety, dispensed 90. 3. Naltrexone 50 mg tablets at bedtime, dispensed 30. 4. Nicotine gum 2 mg p.r.n. craving, dispensed 200. 5. Zofran 8 mg q.6 hours p.r.n. nausea. 6. Seroquel 300 mg at bedtime, dispensed 30. 7. Sertraline 200 mg daily, dispensed 60, 100 mg tablets. 8. Trazodone 50 mg at bedtime, dispensed 15 p.r.n. insomnia. B. Diet is regular. C. Activities are as tolerated. She is a smoker, but she has declined a referral to the [facility] Smokers' Quitline at this time. If she decides to access this free service in the future, she can contact the quitline toll free at . There are no studies pending at the time of discharge. D. Followup care: She is being transferred to [facility] Treatment at [address] [place] [address]. Her admission time is 11 a.m on Monday06/07/2019. E. Disposition: She is being discharged to [facility]. F. Substance abuse followup: She has been referred to [facility] in [place], [place]. She has also been prescribed naltrexone 50 mg daily. HOSPITAL COURSE: Part A: Chief Complaint: "Once again, I thought about ending my life by taking all my pills and slashing my wrist." Parisa was discharged on 03/27/19 with a plan for her to go to [facility] for psychiatric treatment as well as go to a rehab. She went to rehab for about a week and then walked away and started drinking and had never followed up with [facility]. She kept drinking until yesterday when she thought about suicide with the same plan that she had in the past, but this time she did not want to go far away, wanted to do it in her apartment where she lives with her 4 children. Last time, she was brought into the emergency room by her mother who was kind and supportive, but this time her mother and sister were both mad at her and she brought herself to the emergency room. Her mother even threatened to report her to the Child Protective Services and to take her kids away. Parisa describes her mood as being depressed with poor energy, lack of motivation, helplessness, and worthlessness. She was not upfront and forthcoming with how much she drinks, but she says she drinks as much as she can and wants to end this by any means she can to prevent her mother from taking all her kids away and having a normal life. Today, during the evaluation, she continued to have suicidal thoughts, but no plan on the unit. Part B: Psychiatric treatment was rendered. Parisa was admitted to the adult behavioral unit and placed on 15-minute checks for safety. She did advance to 30- minute checks and staff pass. She was safe on all checks. Parisa struggled on the unit due to detoxing from alcohol. She was in what appeared to be great physical and emotional pain. The [facility] assessment was helpful to her, but she did reflect that the last time she detoxed she did not have to go through any of the physical pain and she understands that this process of detox is unpleasant, although she did not appreciate the sensations. Parisa did well on the unit. She went to a few groups but stated she could not tolerate them due to her physical discomfort. She interacted with peers well and tried to be helpful. She did tolerate med changes. Naltrexone 50 mg in the daytime was started. No medications were discontinued. All other medications were continued from home. We did not meet with the family as this is a time of coronavirus restricted visiting and visitors as not allowed on the unit without a very particular order from this provider, which was not given. She was offered a nutrition consult. She is much improved. Her detox is effectively over. She is future oriented. She is eager to go to rehab, although she is distressed that her children cannot visit her. Parisa did finish an MMPI which was interpreted by Dr. Maxwell Ramirez. He determined that she presented a distressed profile and she offered a profile that is typically a cry for help. There are interpersonal distresses that are showing on the readings as well. Dr. Maxwell Ramirez has entered an excellent consult, which would be helpful should anyone have questions. Parisa is future oriented and eager to get started in her process. It should be noted that she is worried about the way she looks, so she wanted to go to [facility] before she went to the rehab further. She was afraid that she would have to watch her back, which she repeated about 3 times, while she was at [place]. She was wished good luck and offered hope for the future. CARMEN LAKHANI, DOLORES [id number]/[facility] #: [id number] [place]AB[place]
== END 2019-06-07 09:15 | DRG 775 ==
LOC: ED 22:31 → BSU 06-01 04:38
PROVIDERS: ADMIT Psychiatry & Neurology Psychiatry; ATTEND Psychiatry & Neurology Psychiatry
PROC: HZ2ZZZZ Detoxification Services for Substance Abuse Treatment (ICD-10-PCS; principal; 2019-06-01)
DX: F10.14 Alcohol abuse with alcohol-induced mood disorder (principal); R45.851 Suicidal ideations; Y90.6 Blood alcohol level of 120-199 mg/100 ml; F32.9 Major depressive disorder, single episode, unspecified; F41.1 Generalized anxiety disorder; F17.210 Nicotine dependence, cigarettes, uncomplicated; E66.9 Obesity, unspecified; Z88.0 Allergy status to penicillin; Z81.8 Family history of other mental and behavioral disorders; Z68.32 Body mass index [BMI] 32.0-32.9, adult
CPT/HCPCS: 36415; 80053; 80061; 80076; 80307; 80320; 80329; 81003; 82150; 83036; 83690; 84443; 85025; 99222; 99232; 99238; 99284; A9270-GY; G0480; J3411